=== PATIENT | male | born 1935 | race Caucasian/White ===

== ENCOUNTER 2018-10-13 10:36 | Inpatient (IN) | payer BC, OTHER ==
--- NOTE | 2018-10-13 11:18 | PDOC ---
History of Present Illness - General Chief Complaint: Wound Stated Complaint: WOUND (PCP SENT) History Source: Patient Exam Limitations: No Limitations - History of Present Illness Initial Comments: 10/13/18 11:18 83-year-old male, with a past medical history of diabetes, cardiac bypass surgery (on Xarelto) and b/l venous insufficiency sent from wound care clinic by Dr. Constantine Pitts for cellulitis of the right leg on Keflex for the past 7 days with no improvement. The patient is complaining of pain over the right anterior calf and dorsal left foot but denies fever, chills or weakness. Able to ambulate but with difficulty at baseline. 10/13/18 11:42 Past History - Past Medical History Allergies/Adverse Reactions: Allergies Allergy/AdvReac Type Severity Reaction Status Date / Time No Known Allergies Allergy Verified 10/13/18 10:57 Home Medications: Ambulatory Orders Amiodarone HCl 1 tab PO DAILY 07/10/18 Calcium Carbonate/Vitamin D3 [Calcium 600 + Vit D Tablet] 1 tab PO BID 07/10/18 Glipizide 10 mg PO DAILY 07/10/18 Levothyroxine Sodium [Levoxyl] 1 tab PO DAILY 07/10/18 Magnesium Oxide [Magnesium] 1 tab PO DAILY 07/10/18 Multivitamin [Multiple Vitamins] 1 tab PO DAILY 07/10/18 Rivaroxaban [Xarelto] 20 mg PO DAILY 07/10/18 Atorvastatin Ca [Lipitor] 10 mg PO HS 10/13/18 Furosemide [Lasix -] 20 mg PO DAILY 10/13/18 Ipratropium [place] [Atrovent Hfa] 0 gm IH DAILY 10/13/18 Lisinopril [Zestril] 2.5 mg PO DAILY 10/13/18 Mometasone Furoate [Asmanex 110Mcg -] 2 inh IH DAILY 10/13/18 Montelukast Sodium [Singulair] 10 mg PO HS 10/13/18 Cardiac Disorders: Yes (tacycardia) COPD: No Diabetes: Yes HTN: Yes Hypercholesterolemia: Yes - Surgical History Orthopedic Surgery: Yes (spinal due to traumatic fall) - Suicide/Smoking/Psychosocial Hx Smoking History: Former smoker Have you smoked in the past 12 months: No If you are a former smoker, when did you quit?: 30 yrs ago Information on smoking cessation initiated: No Review of Systems - Review of Systems Able to Perform ROS?: Yes Is the patient limited Amharic proficient: No Constitutional: No: Symptoms Reported HEENTM: No: Symptoms Reported Respiratory: No: Symptoms reported Cardiac (ROS): No: Symptoms Reported ABD/GI: No: Symptoms Reported : No: Symptoms Reported Musculoskeletal: No: Symptoms Reported Integumentary: Yes: Symptoms Reported, See HPI Neurological: No: Symptoms reported All Other Systems: Reviewed and Negative *Physical Exam - Vital Signs Last Vital Signs Temp Pulse Resp BP Pulse Ox 97.9 F 61 19 118/60 98 10/13/18 10:57 10/13/18 10:57 10/13/18 10:57 10/13/18 10:57 10/13/18 10:57 - Physical Exam General Appearance: Yes: Nourished, Appropriately Dressed. No: Apparent Distress HEENT: positive: EOMI, KERRY, Normal ENT Inspection Respiratory/Chest: positive: Lungs Clear, Normal Breath Sounds. negative: Chest Tender, Respiratory Distress Cardiovascular: positive: Regular Rhythm, Regular Rate, S1, S2 Gastrointestinal/Abdominal: positive: Normal Bowel Sounds, Flat, Soft. negative : Tender Musculoskeletal: positive: Normal Inspection. negative: CVA Tenderness Extremity: positive: Normal Capillary Refill, Normal Inspection, Normal Range of Motion Integumentary: positive: Normal Color, Dry, Warm, Other (RLE red warm with 2 lesions on the anterior calf. LLE esion on left dorsum of the foot. ) Neurologic: positive: Fully Oriented, Alert, Normal Mood/Affect, Normal Response , Motor Strength 5/5. 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 Will call Dr. Howard and admit. 10/13/18 12:17 10/13/18 13:[address] Howard *DC/Admit/Observation/Transfer Diagnosis at time of Disposition: Cellulitis of right leg - Discharge Dispostion Condition at time of disposition: Stable Decision to Admit order: Yes - Referrals Referrals: Deepti Acuña MD [Primary Care Provider] - - Patient Instructions - Post Discharge Activity
[2018-10-13] MEDS ORDERED: VANCOMYCIN 1 GRAM (PRE-DOCKED) 1,000 MG/250 ML BAG IVPB ONE ×2 (11:51→12:37)
[2018-10-13] MEDS ORDERED: PIPERACILLIN/TAZOB 4.5 GM 4.5 GM in DEXTROSE 5%-WATER - 100 ML IVPB ONE (12:03)
[2018-10-13] MEDS ORDERED: PIPERACILLIN/TAZOB 4.5 GM 4.5 GM/100 ML BAG IVPB ONE ×2 (12:37→12:59)
[2018-10-13 13:04] LABS: BASO % 0.4 % (0-2.0); HEMATOCRIT 41.5 % (35.4-49); HEMOGLOBIN 13.3 GM/dL (11.7-16.9); LYMPH % 10.7 % (8-40); MCH 29.7 pg (25.7-33.7); MEAN CELL VOLUME 92.9 fl (80-96); MEAN PLT VOLUME 8.9 fl (7.5-11.1); NEUT % 73.9 % (42.8-82.8); PLATELET COUNT 172 K/MM3 (134-434); RBC 4.46 M/mm3 (4.00-5.60); RDW 14.4 % (11.9-15.9); WHITE BLOOD COUNT 5.6 K/mm3 (4.0-10.0)
--- NOTE | 2018-10-13 13:21 | PDOC ---
Attending Attestation - Medical Decision Making 10/13/18 13:[address] Acuña at 1:17 for admission, case discussed with the LADLE P[employer]ER. <Chloe Ricardo - Last Filed: 10/13/18 13:25> - Resident Resident Name: JessePeter - ED Attending Attestation I have performed the following: I have examined & evaluated the patient, The case was reviewed & discussed with the resident, I agree w/resident's findings & plan, Exceptions are as noted - HPI HPI: 10/13/18 13:18 The patient is an 83-year-old male with past medical history significant for DM and Cardiac Bypass Surgery (on Xarelto), chronic bilateral lower extremity wound (follows up with Dr. Pitts) was sent to the emergency department from [facility] by Dr. Jelena Pitts with bilateral lower extremity wound requiring IV abx treatment. The patient was placed on a 7 day Keflex course since 10/06/2018, without improvement. The patient presents with redness and pain to the right lower extremity and the dorsum of the left foot. The patient at baseline can ambulate with difficulty. Denies fever, chills, shortness of breath, diaphoresis, numbness, tingling, loss of sensation. Allergies: NKA Social history: Former smoker, No past or present use alcohol or recreational drugs. Surgical history: LLE ablation. Spinal surgery s/p fall. PCP: Dr. Bradley Acuña. Vascular Surgeon: Dr. Jelena Pitts. - Physicial Exam PE: 10/13/18 13:19 agree with resident exam - Medical Decision Making 10/13/18 13:00 83yo M presents to the ED for admission for cellulitis that failed outpt antibiotics. Plan for labs, IV abx, admission 10/13/18 13:[address] Acuña's LADLE POURER by Dr. Molina. Pt accepted for admission Case discussed in detail with admitting physician including history, physical exam and ancillary studies. Admitting physician has assumed care for the patient, will follow all pending diagnostics and will complete the evaluation and treatment. <Bairon Meza - Last Filed: 10/13/18 14:56>
[2018-10-13 13:37] LABS: ALBUMIN 3.3 g/dl (3.4-5.0); ALK PHOS 129 U/L (45-117); ANION GAP 6 MMOL/L (8-16); BILIRUBIN,TOTAL 0.8 mg/dL (0.2-1); BLOOD UREA NITROGEN 31 mg/dL (7-18); CALCIUM 8.7 mg/dL (8.5-10.1); CHLORIDE 104 mmol/L (98-107); CO2 28 mmol/L (21-32); CREATININE 1.1 mg/dL (0.55-1.3); GLUCOSE,RANDOM 97 mg/dL (74-106); POTASSIUM 4.7 mmol/L (3.5-5.1); SGOT/AST 41 U/L (15-37); SGPT/ALT 35 U/L (13-61); SODIUM 138 mmol/L (136-145); TOT PROT 6.7 g/dl (6.4-8.2)
[2018-10-13] MEDS ORDERED: LISINOPRIL 5 MG TABLET (FP) PO ONE (14:41)
[2018-10-13] MEDS ORDERED: IPRATROPIUM BR 0.02% 0.5 MG/2.5 ML VIAL.NEB. NEB PRN (14:45)
--- NOTE | 2018-10-13 16:08 | PN ---
Progress Note (short form) - Note Progress Note: Vascular surgery Pt seen in [facility] today. Pt has cellulitis of LLE for over a week. Pt seen last week, and keflex was given. Today pt was re-evalauted and not better. Pt has had ablation of GSV bilaterally over the last couple of weeks. Pt sent to ER for IV antibiotics. Pt has palpable pulses. Please place silvadene and LALITO bandages for compression. ID eval for antibiotics Constantine rae DO
[2018-10-13] MEDS: SILVER SULFADIAZINE 1% TOP CREAM 50 GM JAR TP SCH (18:00)
[2018-10-13] MEDS ORDERED: PT OWN MED DRAWER 7, Y5N ONE ×2 (18:07→19:04)
[2018-10-13] MEDS: RIVAROXABAN 20 MG TABLET PO SCH (18:09)
--- NOTE | 2018-10-13 18:24 | HP ---
Admitting History and Physical - Admission History of Present Illness: The patient is an 83-year-old male with past medical history significant for DM and Cardiac Bypass Surgery (on Xarelto), chronic bilateral lower extremity wound (follows up with Dr. Pitts) was sent to the emergency department from [facility] by Dr. Jelena Pitts with bilateral lower extremity wound requiring IV abx treatment. The patient was placed on a 7 day Keflex course since 10/06/2018, without improvement. The patient presents with redness and pain to the right lower extremity and the dorsum of the left foot. The patient at baseline can ambulate with difficulty. Denies fever, chills, shortness of breath, diaphoresis, numbness, tingling, loss of sensation. History Source: Patient, Medical Record Limitations to Obtaining History: Poor Historian - Past Medical History Cardiovascular: Yes: CAD - Past Surgical History Past Surgical History: Yes: CABG - Smoking History Smoking history: Former smoker Have you smoked in the past 12 months: No If you are a former smoker, when did you quit?: 30 yrs ago - Social History ADL: Family Assistance History of Recent Travel: No Home Medications - Allergies Allergies/Adverse Reactions: Allergies Allergy/AdvReac Type Severity Reaction Status Date / Time No Known Allergies Allergy Verified 10/13/18 10:57 - Home Medications Home Medications: Ambulatory Orders Amiodarone HCl 1 tab PO DAILY 07/10/18 Calcium Carbonate/Vitamin D3 [Calcium 600 + Vit D Tablet] 1 tab PO BID 07/10/18 Glipizide 10 mg PO DAILY 07/10/18 Levothyroxine Sodium [Levoxyl] 1 tab PO DAILY 07/10/18 Magnesium Oxide [Magnesium] 1 tab PO DAILY 07/10/18 Multivitamin [Multiple Vitamins] 1 tab PO DAILY 07/10/18 Rivaroxaban [Xarelto] 20 mg PO DAILY 07/10/18 Atorvastatin Ca [Lipitor] 10 mg PO HS 10/13/18 Furosemide [Lasix -] 20 mg PO DAILY 10/13/18 Ipratropium [place] [Atrovent Hfa] 0 gm IH DAILY 10/13/18 Lisinopril [Zestril] 2.5 mg PO DAILY 10/13/18 Mometasone Furoate [Asmanex 110Mcg -] 2 inh IH DAILY 10/13/18 Montelukast Sodium [Singulair] 10 mg PO HS 10/13/18 Review of Systems - Review of Systems Constitutional: reports: Chills. denies: Fever, Malaise, Night Sweats Eyes: reports: No Symptoms HENT: reports: No Symptoms Neck: reports: No Symptoms Cardiovascular: reports: No Symptoms Respiratory: reports: No Symptoms Gastrointestinal: reports: No Symptoms Genitourinary: reports: No Symptoms Breasts: reports: No Symptoms Reported Musculoskeletal: reports: No Symptoms Integumentary: reports: Erythema, Lesions (lower extremities bilat) Neurological: reports: Pre-Existing Deficit Hematology/Lymphatic: reports: No Symptoms Psychiatric: reports: No Symptoms Physical Examination Vital Signs: Vital Signs Temperature 97.6 F 10/13/18 16:03 Pulse Rate 97 H 10/13/18 16:03 Respiratory Rate 20 10/13/18 16:03 Blood Pressure 111/60 10/13/18 16:03 O2 Sat by Pulse Oximetry (%) 99 10/13/18 16:32 Labs: CBC, BMP 10/13/18 12:55 10/13/18 12:55 Problem List - Problems (1) Cellulitis of right lower extremity Code(s): L03.115 - CELLULITIS OF RIGHT LOWER LIMB (2) 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 Code(s): I87.333 - CHRONIC VENOUS HTN W ULCER AND INFLAM OF BILATERAL LOW EXTRM ; L97.919 - NON-PRS CHRONIC ULC UNSP PRT OF R LOW LEG W UNSP SEVERITY; L97.929 - NON-PRS CHRONIC ULC UNSP PRT OF L LOW LEG W UNSP SEVERITY (3) CAD (coronary artery disease) of artery bypass graft Code(s): I25.810 - ATHEROSCLEROSIS OF CABG W/O ANGINA PECTORIS (4) Venous (peripheral) insufficiency Code(s): I87.2 - VENOUS INSUFFICIENCY (CHRONIC) (PERIPHERAL) (5) Type 2 diabetes mellitus with other skin ulcer Code(s): E11.622 - TYPE 2 DIABETES MELLITUS WITH OTHER SKIN ULCER; L98.499 - NON -PRESSURE CHRONIC ULCER OF SKIN OF SITES W UNSP SEVERITY Assessment/Plan # cellulitis bilat LE local treatment per Vascular / compression dressing and elevate Abx per ID will cover for MRSA being followed at wound center Dr Pitts # PVD bilt LE s/p ablation of GSV bilaterally over the last couple of weeks. # CKD trend labs #DM A1c sliding scale / ada diet # hypothyroid continue synthroid #CAD s/p Cabg #Cardiac arrhythmia continue Amidarone levels followed as out patient cardiology follow up as out patient has remained stable
[2018-10-13 18:43] LABS: URINE APPEARANCE CLEAR; URINE BILIRUBIN NEGATIVE (<2.0 mg/dL); URINE COLOR COLORLESS; URINE GLUCOSE (UA) 1+ (NEGATIVE); URINE KETONE NEGATIVE (NEGATIVE); URINE LEUK ESTERASE NEGATIVE (NEGATIVE); URINE NITRITE NEGATIVE (NEGATIVE); URINE PROTEIN NEGATIVE (NEGATIVE); URINE UROBILINOGEN NEGATIVE mg/dL (0.2-1.0)
[2018-10-13] MEDS ORDERED: oxyCODONE HCL 5 MG TABLET PO PRN (18:56)
[2018-10-13] MEDS: ACETAMINOPHEN 325 MG TABLET (FP) PO SCH (19:10)
[2018-10-13] MEDS: LISINOPRIL 5 MG TABLET (FP) PO SCH (19:10)
[2018-10-13] MEDS: ALBUTEROL SO4 2.5/IPRATROPIUM 0.5 INH SOL 3 ML VIAL.NEB. NEB SCH (20:31)
[2018-10-13] MEDS: ATORVASTATIN CA 10 MG TABLET (FP) PO SCH (21:43)
[2018-10-13] MEDS: DOCUSATE SODIUM 100 MG CAPSULE (FP) PO SCH (21:43)
[2018-10-13] MEDS: MONTELUKAST NA 10 MG TABLET PO SCH (21:43)
[2018-10-14] MEDS ORDERED: glipiZIDE 5 MG TABLET (FP) ONE (05:39)
[2018-10-14] MEDS: INSULIN SLIDING SCALE (NOVOLOG) 1 VIAL SQ SCH ×2 (06:13→16:36)
[2018-10-14] MEDS: LEVOTHYROXINE NA 50 MCG TABLET (FP) PO SCH (06:14)
[2018-10-14] MEDS: glipiZIDE 10 MG TABLET (FP) PO SCH (06:14)
[2018-10-14 07:40] LABS: BASO % 0.4 % (0-2.0); EOS % 1.5 % (0-4.5); HEMOGLOBIN 13.2 GM/dL (11.7-16.9); LYMPH % 10.5 % (8-40); MCH 29.9 pg (25.7-33.7); MCHC 32.2 g/dl (32.0-35.9); MEAN CELL VOLUME 92.7 fl (80-96); MEAN PLT VOLUME 9.2 fl (7.5-11.1); MONO % 12.8 % (3.8-10.2); NEUT % 74.8 % (42.8-82.8); PLATELET COUNT 179 K/MM3 (134-434); RBC 4.42 M/mm3 (4.00-5.60); RDW 14.5 % (11.9-15.9)
[2018-10-14] MEDS: ALBUTEROL SO4 2.5/IPRATROPIUM 0.5 INH SOL 3 ML VIAL.NEB. NEB SCH ×4 (07:49→20:57)
[2018-10-14 07:56] LABS: ALK PHOS 124 U/L (45-117); ANION GAP 8 MMOL/L (8-16); BILIRUBIN,TOTAL 0.9 mg/dL (0.2-1); BLOOD UREA NITROGEN 26 mg/dL (7-18); CALCIUM 8.5 mg/dL (8.5-10.1); CHLORIDE 105 mmol/L (98-107); CO2 25 mmol/L (21-32); CREATININE 1.4 mg/dL (0.55-1.3); GLUCOSE,RANDOM 114 mg/dL (74-106); POTASSIUM 5.2 mmol/L (3.5-5.1); SGOT/AST 49 U/L (15-37); SGPT/ALT 34 U/L (13-61); SODIUM 138 mmol/L (136-145); TOT PROT 6.5 g/dl (6.4-8.2)
[2018-10-14] MEDS ORDERED: PT OWN MED DRAWER 7, Y5N ONE ×4 (09:18→21:06)
[2018-10-14] MEDS: FUROSEMIDE 20 MG TABLET (FP) PO SCH (09:36)
[2018-10-14] MEDS: ACETAMINOPHEN 325 MG TABLET (FP) PO SCH ×4 (09:36→21:31)
[2018-10-14] MEDS: LISINOPRIL 5 MG TABLET (FP) PO SCH (09:38)
[2018-10-14] MEDS: AMIODARONE HCL 200 MG TABLET (FP) PO SCH (09:39)
[2018-10-14] MEDS: POLYETHYLENE GLYCOL 3350 119 GM BTL PO SCH (09:39)
--- NOTE | 2018-10-14 11:42 | CON.ID ---
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 uses cane/walker as outpt - History Source History Provided By: Patient, Medical Record Limitations to Obtaining History: No Limitations - Past Medical History Cardio/Vascular: Yes: CAD Endocrine: Yes: Diabetes Mellitus (for fifteen years) - Past Surgical History Past Surgical History: Yes: CABG (30 years ago) Additional Surgical History: spinal surgery 2001 after fall - Alcohol/Substance Use Hx Alcohol Use: No History of Substance Use: reports: None - Smoking History Smoking history: Former smoker Have you smoked in the past 12 months: No If you are a former smoker, when did you quit?: 30 yrs ago - Social History Usual Living Arrangement: Alone ADL: Support Services Occupation: retired construction secretary Place of : [facility] History of Recent Travel: No Home Medications - Allergies Allergies/Adverse Reactions: Allergies Allergy/AdvReac Type Severity Reaction Status Date / Time No Known Allergies Allergy Verified 10/13/18 10:57 - Home Medications Home Medications: Ambulatory Orders Amiodarone HCl 1 tab PO DAILY 07/10/18 Calcium Carbonate/Vitamin D3 [Calcium 600 + Vit D Tablet] 1 tab PO BID 07/10/18 Glipizide 10 mg PO DAILY 07/10/18 Levothyroxine Sodium [Levoxyl] 1 tab PO DAILY 07/10/18 Magnesium Oxide [Magnesium] 1 tab PO DAILY 07/10/18 Multivitamin [Multiple Vitamins] 1 tab PO DAILY 07/10/18 Rivaroxaban [Xarelto] 20 mg PO DAILY 07/10/18 Atorvastatin Ca [Lipitor] 10 mg PO HS 10/13/18 Furosemide [Lasix -] 20 mg PO DAILY 10/13/18 Ipratropium [place] [Atrovent Hfa] 0 gm IH DAILY 10/13/18 Lisinopril [Zestril] 2.5 mg PO DAILY 10/13/18 Mometasone Furoate [Asmanex 110Mcg -] 2 inh IH DAILY 10/13/18 Montelukast Sodium [Singulair] 10 mg PO HS 10/13/18 Family Disease History - Family Disease History Family History: Denies Review of Systems - Review of Systems Constitutional: reports: No Symptoms Eyes: reports: No Symptoms HENT: reports: No Symptoms Neck: reports: No Symptoms Cardiovascular: denies: Chest Pain Respiratory: denies: Cough Gastrointestinal: denies: Abdominal Pain Genitourinary: reports: No Symptoms Physical Exam Vital Signs: Vital Signs Temperature 98 F 10/14/18 10:00 Pulse Rate 91 H 10/14/18 10:00 Respiratory Rate 20 10/14/18 10:00 Blood Pressure 108/68 10/14/18 10:00 O2 Sat by Pulse Oximetry (%) 99 10/14/18 04:00 Constitutional: Yes: Well Nourished, No Distress Eyes: Yes: Conjunctiva Clear HENT: Yes: Atraumatic, Normocephalic Neck: Yes: Supple Cardiovascular: Yes: Regular Rate and Rhythm Respiratory: Yes: Regular, CTA Bilaterally Gastrointestinal: Yes: Normal Bowel Sounds, Soft Extremities: Yes: Other (bilateral lower extrmity erythema rle greater then left , rle is warm, both legs with scabs and excoriations- all dry, no drainage) Edema: Yes Neurological: Yes: Alert, Oriented Labs: CBC, BMP 10/14/18 06:10 10/14/18 06:10 Imaging - Results Chest X-ray: Report Reviewed, Image Reviewed Problem List - Problems (1) Cellulitis of right lower extremity Code(s): L03.115 - CELLULITIS OF RIGHT LOWER LIMB (2) Venous (peripheral) insufficiency Code(s): I87.2 - VENOUS INSUFFICIENCY (CHRONIC) (PERIPHERAL) (3) Renal insufficiency Code(s): N28.9 - DISORDER OF KIDNEY AND URETER, UNSPECIFIED Assessment/Plan cellulitis s/p GSV ablation suspect staph/strep infection add mrsa coverage given lack of improvement will start ceftaroline- does adjust for renal insufficiency repeat bmp in am
[2018-10-14] MEDS: CEFTAROLINE FOSAMIL ACETATE 400 MG in DEXTROSE 5%-WATER - 100 ML IVPB SCH ×2 (14:28→21:33)
[2018-10-14] MEDS: SILVER SULFADIAZINE 1% TOP CREAM 50 GM JAR TP SCH (14:58)
--- NOTE | 2018-10-14 16:52 | PN ---
Progress Note (short form) - Note Progress Note: patient seen and examined in the room legs elevated / dressing in place Vital Signs Period Temp Pulse Resp BP Sys/Almonte Pulse Ox Last 24 Hr 97.1 F-98 F 58-91 20-20 108-134/52-68 97-99 neck supple heart S1/S2 lungs clear bilat abd soft non tender ext bilat LE with terrence bandage left > right CBC, BMP 10/14/18 06:10 10/14/18 06:10 Microbiology 10/13/18 13:15 Blood - Peripheral Venous Blood Culture - Preliminary NO GROWTH OBTAINED AFTER 24 HOURS, INCUBATION TO CONTINUE FOR 4 DAYS. 10/13/18 12:55 Blood - Peripheral Venous Blood Culture - Preliminary NO GROWTH OBTAINED AFTER 24 HOURS, INCUBATION TO CONTINUE FOR 4 DAYS. Active Medications Acetaminophen (Tylenol -) 650 mg PO QID [facility] Last Admin: 10/14/18 14:36 Dose: 650 mg Albuterol/Ipratropium (Duoneb -) 1 amp NEB RQID [facility] Last Admin: 10/14/18 16:53 Dose: 1 amp Amiodarone HCl (Cordarone -) 200 mg PO DAILY [facility] Last Admin: 10/14/18 09:39 Dose: 200 mg Atorvastatin Calcium (Lipitor -) 10 mg PO HS [facility] Last Admin: 10/13/18 21:43 Dose: 10 mg Docusate Sodium (Colace -) 200 mg PO HS [facility] Last Admin: 10/13/18 21:43 Dose: 200 mg Furosemide (Lasix -) 20 mg PO DAILY [facility] Last Admin: 10/14/18 09:36 Dose: 20 mg Glipizide (Glucotrol -) 10 mg PO DAILY@0700 [facility] Last Admin: 10/14/18 06:14 Dose: 10 mg Ceftaroline Fosamil 400 mg/ (Dextrose) 100 mls @ 200 mls/hr IVPB BID [facility]; Protocol Last Admin: 10/14/18 14:28 Dose: 200 mls/hr Insulin Aspart (Novolog Vial Sliding Scale -) 1 vial SQ BIDAC [facility]; Protocol Last Admin: 10/14/18 16:36 Dose: Not Given Ipratropium [place] (Atrovent 0.02% Nebulizer -) 1 amp NEB Q6H PRN PRN Reason: DYSPEPSIA Stop: 10/20/18 14:45 Levothyroxine Sodium (Synthroid -) 50 mcg PO DAILY@0700 [facility] Last Admin: 10/14/18 06:14 Dose: 50 mcg Lisinopril (Prinivil) 2.5 mg PO DAILY [facility] Last Admin: 10/14/18 09:38 Dose: 2.5 mg Mometasone Furoate (Asmanex 220mcg -) 2 puff IH [facility] Montelukast Sodium (Singulair -) 10 mg PO HS [facility] Last Admin: 10/13/18 21:43 Dose: 10 mg Oxycodone HCl (Roxicodone -) 5 mg PO Q6H PRN PRN Reason: PAIN LEVEL 6-10 Polyethylene Glycol (Miralax (For Daily Use) -) 17 gm PO DAILY [facility] Last Admin: 10/14/18 09:39 Dose: 17 gm Rivaroxaban (Xarelto -) 20 mg PO DAILY@1800 [facility] Last Admin: 10/13/18 18:09 Dose: 20 mg Silver Sulfadiazine (Silvadene -) 1 applic TP DAILY [facility] Last Admin: 10/14/18 14:58 Dose: 1 applic # cellulitis bilat LE local treatment per Vascular Abx per ID # PVD bilt LE s/p ablation of GSV bilaterally over the last couple of weeks. 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 Code(s): I87.333 - CHRONIC VENOUS HTN W ULCER AND INFLAM OF BILATERAL LOW EXTRM ; L97.919 - NON-PRS CHRONIC ULC UNSP PRT OF R LOW LEG W UNSP SEVERITY; L97.929 - NON-PRS CHRONIC ULC UNSP PRT OF L LOW LEG W UNSP SEVERITY (3) CAD (coronary artery disease) of artery bypass graft Code(s): I25.810 - ATHEROSCLEROSIS OF CABG W/O ANGINA PECTORIS (4) Venous (peripheral) insufficiency Code(s): I87.2 - VENOUS INSUFFICIENCY (CHRONIC) (PERIPHERAL) (5) Type 2 diabetes mellitus with other skin ulcer Code(s): E11.622 - TYPE 2 DIABETES MELLITUS WITH OTHER SKIN ULCER; L98.499 - NON -PRESSURE CHRONIC ULCER OF SKIN OF SITES W UNSP SEVERITY
[2018-10-14] MEDS: RIVAROXABAN 20 MG TABLET PO SCH (17:36)
[2018-10-14] MEDS: MOMETASONE FUROATE 220 MCG/IH INHALER IH SCH (21:30)
[2018-10-14] MEDS: ATORVASTATIN CA 10 MG TABLET (FP) PO SCH (21:31)
[2018-10-14] MEDS: DOCUSATE SODIUM 100 MG CAPSULE (FP) PO SCH (21:31)
[2018-10-14] MEDS: MONTELUKAST NA 10 MG TABLET PO SCH (21:32)
[2018-10-15] MEDS ORDERED: glipiZIDE 5 MG TABLET (FP) ONE (06:11)
[2018-10-15] MEDS: INSULIN SLIDING SCALE (NOVOLOG) 1 VIAL SQ SCH ×2 (06:41→16:31)
[2018-10-15] MEDS: glipiZIDE 10 MG TABLET (FP) PO SCH (06:41)
[2018-10-15] MEDS: LEVOTHYROXINE NA 50 MCG TABLET (FP) PO SCH (06:42)
[2018-10-15] MEDS: ALBUTEROL SO4 2.5/IPRATROPIUM 0.5 INH SOL 3 ML VIAL.NEB. NEB SCH ×4 (07:34→20:30)
[2018-10-15 07:43] LABS: BASO % 0.4 % (0-2.0); EOS % 1.3 % (0-4.5); HEMATOCRIT 39.6 % (35.4-49); HEMOGLOBIN 12.9 GM/dL (11.7-16.9); LYMPH % 9.6 % (8-40); MCHC 32.6 g/dl (32.0-35.9); MEAN CELL VOLUME 92.2 fl (80-96); MEAN PLT VOLUME 8.8 fl (7.5-11.1); MONO % 13.8 % (3.8-10.2); NEUT % 74.9 % (42.8-82.8); PLATELET COUNT 166 K/MM3 (134-434); RDW 14.7 % (11.9-15.9); WHITE BLOOD COUNT 5.5 K/mm3 (4.0-10.0)
[2018-10-15 08:30] LABS: ANION GAP 6 MMOL/L (8-16); BLOOD UREA NITROGEN 28 mg/dL (7-18); CALCIUM 8.5 mg/dL (8.5-10.1); CHLORIDE 104 mmol/L (98-107); CO2 26 mmol/L (21-32); CREATININE 1.3 mg/dL (0.55-1.3); GLUCOSE,RANDOM 100 mg/dL (74-106); POTASSIUM 4.6 mmol/L (3.5-5.1); SODIUM 136 mmol/L (136-145)
[2018-10-15] MEDS ORDERED: PT OWN MED DRAWER 7, Y5N ONE (09:37)
[2018-10-15] MEDS: FUROSEMIDE 20 MG TABLET (FP) PO SCH (09:47)
[2018-10-15] MEDS: AMIODARONE HCL 200 MG TABLET (FP) PO SCH (09:47)
[2018-10-15] MEDS: ACETAMINOPHEN 325 MG TABLET (FP) PO SCH ×4 (09:47→22:04)
[2018-10-15] MEDS: LISINOPRIL 5 MG TABLET (FP) PO SCH (09:47)
[2018-10-15] MEDS: POLYETHYLENE GLYCOL 3350 119 GM BTL PO SCH (09:53)
[2018-10-15] MEDS: CEFTAROLINE FOSAMIL ACETATE 400 MG in DEXTROSE 5%-WATER - 100 ML IVPB SCH ×2 (09:53→22:03)
--- NOTE | 2018-10-15 14:18 | PN ---
Progress Note (short form) - Note Progress Note: patient seen and examined in the room legs elevated / dressing in place Vital Signs Period Temp Pulse Resp BP Sys/Almonte Pulse Ox Last 24 Hr 97.5 F-97.7 F 62-69 18-20 106-136/56-63 10 neck supple heart S1/S2 lungs clear bilat abd soft non tender ext bilat LE with terrence bandage left > right CBC, BMP 10/15/18 06:00 10/15/18 06:00 CBC, BMP 10/14/18 06:10 10/14/18 06:10 Microbiology 10/13/18 13:15 Blood - Peripheral Venous Blood Culture - Preliminary NO GROWTH OBTAINED AFTER 48 HOURS, INCUBATION TO CONTINUE FOR 3 DAYS. 10/13/18 12:55 Blood - Peripheral Venous Blood Culture - Preliminary NO GROWTH OBTAINED AFTER 48 HOURS, INCUBATION TO CONTINUE FOR 3 DAYS. Active Medications Acetaminophen (Tylenol -) 650 mg PO QID [facility] Last Admin: 10/15/18 13:54 Dose: 650 mg Albuterol/Ipratropium (Duoneb -) 1 amp NEB RQID [facility] Last Admin: 10/15/18 12:24 Dose: 1 amp Amiodarone HCl (Cordarone -) 200 mg PO DAILY [facility] Last Admin: 10/15/18 09:47 Dose: 200 mg Atorvastatin Calcium (Lipitor -) 10 mg PO HS [facility] Last Admin: 10/14/18 21:31 Dose: 10 mg Docusate Sodium (Colace -) 200 mg PO HS [facility] Last Admin: 10/14/18 21:31 Dose: 200 mg Furosemide (Lasix -) 20 mg PO DAILY [facility] Last Admin: 10/15/18 09:47 Dose: 20 mg Glipizide (Glucotrol -) 10 mg PO DAILY@0700 [facility] Last Admin: 10/15/18 06:41 Dose: 10 mg Ceftaroline Fosamil 400 mg/ (Dextrose) 100 mls @ 200 mls/hr IVPB BID [facility]; Protocol Last Admin: 10/15/18 09:53 Dose: 200 mls/hr Insulin Aspart (Novolog Vial Sliding Scale -) 1 vial SQ BIDAC [facility]; Protocol Last Admin: 10/15/18 06:41 Dose: Not Given Ipratropium [place] (Atrovent 0.02% Nebulizer -) 1 amp NEB Q6H PRN PRN Reason: DYSPEPSIA Stop: 10/20/18 14:45 Levothyroxine Sodium (Synthroid -) 50 mcg PO DAILY@0700 [facility] Last Admin: 10/15/18 06:42 Dose: 50 mcg Lisinopril (Prinivil) 2.5 mg PO DAILY [facility] Last Admin: 10/15/18 09:47 Dose: 2.5 mg Mometasone Furoate (Asmanex 220mcg -) 2 puff IH [facility] Last Admin: 10/14/18 21:30 Dose: 2 puff Montelukast Sodium (Singulair -) 10 mg PO HS [facility] Last Admin: 10/14/18 21:32 Dose: 10 mg Oxycodone HCl (Roxicodone -) 5 mg PO Q6H PRN PRN Reason: PAIN LEVEL 6-10 Polyethylene Glycol (Miralax (For Daily Use) -) 17 gm PO DAILY [facility] Last Admin: 10/15/18 09:53 Dose: 17 gm Rivaroxaban (Xarelto -) 20 mg PO DAILY@1800 [facility] Last Admin: 10/14/18 17:36 Dose: 20 mg Silver Sulfadiazine (Silvadene -) 1 applic TP DAILY [facility] Last Admin: 10/14/18 14:58 Dose: 1 woody # cellulitis bilat LE local treatment per Vascular Abx per ID # PVD bilt LE s/p ablation of GSV bilaterally over the last couple of weeks. 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 Code(s): I87.333 - CHRONIC VENOUS HTN W ULCER AND INFLAM OF BILATERAL LOW EXTRM ; L97.919 - NON-PRS CHRONIC ULC UNSP PRT OF R LOW LEG W UNSP SEVERITY; L97.929 - NON-PRS CHRONIC ULC UNSP PRT OF L LOW LEG W UNSP SEVERITY (3) CAD (coronary artery disease) of artery bypass graft Code(s): I25.810 - ATHEROSCLEROSIS OF CABG W/O ANGINA PECTORIS (4) Venous (peripheral) insufficiency Code(s): I87.2 - VENOUS INSUFFICIENCY (CHRONIC) (PERIPHERAL) (5) Type 2 diabetes mellitus with other skin ulcer Code(s): E11.622 - TYPE 2 DIABETES MELLITUS WITH OTHER SKIN ULCER; L98.499 - NON -PRESSURE CHRONIC ULCER OF SKIN OF SITES W UNSP SEVERITY (6) Combined hyperlipidemia associated with type 2 diabetes mellitus Code(s): E11.69 - TYPE 2 DIABETES MELLITUS WITH OTHER SPECIFIED COMPLICATION; E78.2 - MIXED HYPERLIPIDEMIA (7) Unsteady gait Code(s): R26.81 - UNSTEADINESS ON FEET (8) COPD not affecting current episode of care Code(s): J44.9 - CHRONIC OBSTRUCTIVE PULMONARY DISEASE, UNSPECIFIED
[2018-10-15] MEDS: SILVER SULFADIAZINE 1% TOP CREAM 50 GM JAR TP SCH (15:36)
[2018-10-15] MEDS: RIVAROXABAN 20 MG TABLET PO SCH (17:45)
[2018-10-15] MEDS: ATORVASTATIN CA 10 MG TABLET (FP) PO SCH (22:04)
[2018-10-15] MEDS: DOCUSATE SODIUM 100 MG CAPSULE (FP) PO SCH (22:04)
[2018-10-15] MEDS: MOMETASONE FUROATE 220 MCG/IH INHALER IH SCH (22:04)
[2018-10-15] MEDS: MONTELUKAST NA 10 MG TABLET PO SCH (22:14)
[2018-10-16] MEDS ORDERED: glipiZIDE 5 MG TABLET (FP) ONE (06:00)
[2018-10-16] MEDS: LEVOTHYROXINE NA 50 MCG TABLET (FP) PO SCH (06:23)
[2018-10-16] MEDS: glipiZIDE 10 MG TABLET (FP) PO SCH (06:23)
[2018-10-16] MEDS: INSULIN SLIDING SCALE (NOVOLOG) 1 VIAL SQ SCH ×2 (06:23→17:26)
[2018-10-16] MEDS: ALBUTEROL SO4 2.5/IPRATROPIUM 0.5 INH SOL 3 ML VIAL.NEB. NEB SCH ×4 (07:25→19:41)
[2018-10-16] MEDS ORDERED: PT OWN MED DRAWER 7, Y5N ONE (11:11)
[2018-10-16] MEDS: CEFTAROLINE FOSAMIL ACETATE 400 MG in DEXTROSE 5%-WATER - 100 ML IVPB SCH (11:12)
[2018-10-16] MEDS: FUROSEMIDE 20 MG TABLET (FP) PO SCH (11:12)
[2018-10-16] MEDS: ACETAMINOPHEN 325 MG TABLET (FP) PO SCH ×4 (11:13→22:45)
[2018-10-16] MEDS: POLYETHYLENE GLYCOL 3350 119 GM BTL PO SCH (11:16)
[2018-10-16] MEDS: SILVER SULFADIAZINE 1% TOP CREAM 50 GM JAR TP SCH (12:03)
--- NOTE | 2018-10-16 12:50 | PN ---
Progress Note (short form) - Note Progress Note: no compliaints walked to bathroom today Vital Signs Period Temp Pulse Resp BP Sys/Almonte Pulse Ox Last 24 Hr 97.3 F-97.5 F 65-69 17-20 136-144/60-68 100 cor-rrr lungs clear legs still with scaling and peeling skin, decreasing erythema CBC, BMP 10/15/18 06:00 10/15/18 06:00 Microbiology 10/13/18 13:15 Blood - Peripheral Venous Blood Culture - Preliminary NO GROWTH OBTAINED AFTER 48 HOURS, INCUBATION TO CONTINUE FOR 3 DAYS. 10/13/18 12:55 Blood - Peripheral Venous Blood Culture - Preliminary NO GROWTH OBTAINED AFTER 48 HOURS, INCUBATION TO CONTINUE FOR 3 DAYS. a/p cellulitis s/p GSV ablation venous insufficiency improved continue ceftaroline day #3 Problem List - Problems (1) Cellulitis of right lower extremity Code(s): L03.115 - CELLULITIS OF RIGHT LOWER LIMB (2) Venous (peripheral) insufficiency Code(s): I87.2 - VENOUS INSUFFICIENCY (CHRONIC) (PERIPHERAL) (3) Renal insufficiency Code(s): N28.9 - DISORDER OF KIDNEY AND URETER, UNSPECIFIED
[2018-10-16] MEDS: AMIODARONE HCL 200 MG TABLET (FP) PO SCH (15:02)
[2018-10-16] MEDS: LISINOPRIL 5 MG TABLET (FP) PO SCH (15:02)
[2018-10-16] MEDS: RIVAROXABAN 20 MG TABLET PO SCH (18:11)
[2018-10-16] MEDS ORDERED: INSULIN (NOVOLOG) ASPART 100 UNITS/ML 10ML VIAL ONE (20:58)
[2018-10-16] MEDS: MOMETASONE FUROATE 220 MCG/IH INHALER IH SCH (22:44)
[2018-10-16] MEDS: CEFTAROLINE FOSAMIL ACETATE 600 MG in DEXTROSE 5%-WATER - 100 ML IVPB SCH (22:45)
[2018-10-16] MEDS: DOCUSATE SODIUM 100 MG CAPSULE (FP) PO SCH (22:45)
[2018-10-16] MEDS: ATORVASTATIN CA 10 MG TABLET (FP) PO SCH (22:46)
[2018-10-16] MEDS: MONTELUKAST NA 10 MG TABLET PO SCH (22:46)
--- NOTE | 2018-10-16 23:15 | PN ---
Progress Note (short form) - Note Progress Note: patient seen and examined in the room legs elevated / dressing in place Vital Signs Period Temp Pulse Resp BP Sys/Almonte Pulse Ox Last 24 Hr 97.5 F-97.7 F 62-69 18-20 106-136/56-63 10 neck supple heart S1/S2 lungs clear bilat abd soft non tender ext bilat LE with terrence bandage left > right CBC, BMP 10/15/18 06:00 10/15/18 06:00 CBC, BMP 10/15/18 06:00 10/15/18 06:00 Microbiology 10/13/18 13:15 Blood - Peripheral Venous Blood Culture - Preliminary NO GROWTH OBTAINED AFTER 72 HOURS, INCUBATION TO CONTINUE FOR 2 DAYS. 10/13/18 12:55 Blood - Peripheral Venous Blood Culture - Preliminary NO GROWTH OBTAINED AFTER 72 HOURS, INCUBATION TO CONTINUE FOR 2 DAYS. Active Medications Acetaminophen (Tylenol -) 650 mg PO QID [facility] Last Admin: 10/16/18 22:45 Dose: 650 mg Albuterol/Ipratropium (Duoneb -) 1 amp NEB RQID [facility] Last Admin: 10/16/18 19:41 Dose: Not Given Amiodarone HCl (Cordarone -) 200 mg PO DAILY [facility] Last Admin: 10/16/18 15:02 Dose: 200 mg Atorvastatin Calcium (Lipitor -) 10 mg PO HS [facility] Last Admin: 10/16/18 22:46 Dose: 10 mg Docusate Sodium (Colace -) 200 mg PO HS [facility] Last Admin: 10/16/18 22:45 Dose: 200 mg Furosemide (Lasix -) 20 mg PO DAILY [facility] Last Admin: 10/16/18 11:12 Dose: 20 mg Glipizide (Glucotrol -) 10 mg PO DAILY@0700 [facility] Last Admin: 10/16/18 06:23 Dose: 10 mg Ceftaroline Fosamil 600 mg/ (Dextrose) 100 mls @ 200 mls/hr IVPB BID [facility]; Protocol Last Admin: 10/16/18 22:45 Dose: 200 mls/hr Insulin Aspart (Novolog Vial Sliding Scale -) 1 vial SQ BIDAC [facility]; Protocol Last Admin: 10/16/18 17:26 Dose: Not Given Ipratropium [place] (Atrovent 0.02% Nebulizer -) 1 amp NEB Q6H PRN PRN Reason: DYSPEPSIA Stop: 10/20/18 14:45 Levothyroxine Sodium (Synthroid -) 50 mcg PO DAILY@0700 [facility] Last Admin: 10/16/18 06:23 Dose: 50 mcg Lisinopril (Prinivil) 2.5 mg PO DAILY [facility] Last Admin: 10/16/18 15:02 Dose: 2.5 mg Mometasone Furoate (Asmanex 220mcg -) 2 puff IH [facility] Last Admin: 10/16/18 22:44 Dose: 2 puff Montelukast Sodium (Singulair -) 10 mg PO HS [facility] Last Admin: 10/16/18 22:46 Dose: 10 mg Oxycodone HCl (Roxicodone -) 5 mg PO Q6H PRN PRN Reason: PAIN LEVEL 6-10 Polyethylene Glycol (Miralax (For Daily Use) -) 17 gm PO DAILY [facility] Last Admin: 10/16/18 11:16 Dose: 17 gm Rivaroxaban (Xarelto -) 20 mg PO DAILY@1800 [facility] Last Admin: 10/16/18 18:11 Dose: 20 mg Silver Sulfadiazine (Silvadene -) 1 applic TP DAILY [facility] Last Admin: 10/16/18 12:03 Dose: 1 applic # cellulitis bilat LE local treatment per Vascular Abx per ID # PVD bilt LE s/p ablation of GSV bilaterally over the last couple of weeks. 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 Code(s): I87.333 - CHRONIC VENOUS HTN W ULCER AND INFLAM OF BILATERAL LOW EXTRM ; L97.919 - NON-PRS CHRONIC ULC UNSP PRT OF R LOW LEG W UNSP SEVERITY; L97.929 - NON-PRS CHRONIC ULC UNSP PRT OF L LOW LEG W UNSP SEVERITY (3) CAD (coronary artery disease) of artery bypass graft Code(s): I25.810 - ATHEROSCLEROSIS OF CABG W/O ANGINA PECTORIS (4) Venous (peripheral) insufficiency Code(s): I87.2 - VENOUS INSUFFICIENCY (CHRONIC) (PERIPHERAL) (5) Type 2 diabetes mellitus with other skin ulcer Code(s): E11.622 - TYPE 2 DIABETES MELLITUS WITH OTHER SKIN ULCER; L98.499 - NON -PRESSURE CHRONIC ULCER OF SKIN OF SITES W UNSP SEVERITY
--- NOTE | 2018-10-16 23:49 | EKG ---
Test Reason : Blood Pressure : / mmHG Vent. Rate : 061 BPM Atrial Rate : 061 BPM P-R Int : 160 ms QRS Dur : 080 ms QT Int : 444 ms P-R-T Axes : 046 038 027 degrees QTc Int : 446 ms NORMAL SINUS RHYTHM NORMAL ECG NO PREVIOUS ECGS AVAILABLE Confirmed by SANG DESOUZA MD ([id number]) on 10/16/2018 11:48:50 PM Referred By: Confirmed By:SANG DESOUZA MD
[2018-10-17] MEDS ORDERED: PT OWN MED DRAWER 7, Y5N ONE ×8 (06:18→23:22)
[2018-10-17] MEDS: LEVOTHYROXINE NA 50 MCG TABLET (FP) PO SCH (06:33)
[2018-10-17] MEDS: INSULIN SLIDING SCALE (NOVOLOG) 1 VIAL SQ SCH ×2 (06:35→17:56)
[2018-10-17] MEDS: glipiZIDE 10 MG TABLET (FP) PO SCH (07:10)
[2018-10-17] MEDS: ALBUTEROL SO4 2.5/IPRATROPIUM 0.5 INH SOL 3 ML VIAL.NEB. NEB SCH ×4 (08:27→20:39)
[2018-10-17] MEDS: ACETAMINOPHEN 325 MG TABLET (FP) PO SCH ×4 (09:43→21:59)
[2018-10-17] MEDS: AMIODARONE HCL 200 MG TABLET (FP) PO SCH (09:44)
[2018-10-17] MEDS: FUROSEMIDE 20 MG TABLET (FP) PO SCH (09:44)
[2018-10-17] MEDS: CEFTAROLINE FOSAMIL ACETATE 600 MG in DEXTROSE 5%-WATER - 100 ML IVPB SCH ×2 (09:46→21:56)
[2018-10-17] MEDS: LISINOPRIL 5 MG TABLET (FP) PO SCH (09:47)
[2018-10-17] MEDS: POLYETHYLENE GLYCOL 3350 119 GM BTL PO SCH (09:47)
[2018-10-17] MEDS: SILVER SULFADIAZINE 1% TOP CREAM 50 GM JAR TP SCH (17:56)
[2018-10-17] MEDS: RIVAROXABAN 20 MG TABLET PO SCH (18:03)
--- NOTE | 2018-10-17 21:14 | PN ---
Progress Note (short form) - Note Progress Note: patient seen and examined in the room legs elevated / dressing in place to discuss with ID change to PO Vital Signs Period Temp Pulse Resp BP Sys/Almonte Pulse Ox Last 24 Hr 97.5 F-97.7 F 62-69 18-20 106-136/56-63 10 neck supple heart S1/S2 lungs clear bilat abd soft non tender ext bilat LE with terrence bandage left > right CBC, BMP 10/15/18 06:00 10/15/18 06:00 Microbiology 10/13/18 13:15 Blood - Peripheral Venous Blood Culture - Preliminary NO GROWTH OBTAINED AFTER 96 HOURS, INCUBATION TO CONTINUE FOR 1 DAYS. 10/13/18 12:55 Blood - Peripheral Venous Blood Culture - Preliminary NO GROWTH OBTAINED AFTER 96 HOURS, INCUBATION TO CONTINUE FOR 1 DAYS. Active Medications Acetaminophen (Tylenol -) 650 mg PO QID [facility] Last Admin: 10/17/18 17:57 Dose: Not Given Albuterol/Ipratropium (Duoneb -) 1 amp NEB RQID [facility] Last Admin: 10/17/18 20:39 Dose: 1 amp Amiodarone HCl (Cordarone -) 200 mg PO DAILY [facility] Last Admin: 10/17/18 09:44 Dose: 200 mg Atorvastatin Calcium (Lipitor -) 10 mg PO HS [facility] Last Admin: 10/16/18 22:46 Dose: 10 mg Docusate Sodium (Colace -) 200 mg PO HS [facility] Last Admin: 10/16/18 22:45 Dose: 200 mg Furosemide (Lasix -) 20 mg PO DAILY [facility] Last Admin: 10/17/18 09:44 Dose: 20 mg Glipizide (Glucotrol -) 10 mg PO DAILY@0700 [facility] Last Admin: 10/17/18 07:10 Dose: 10 mg Ceftaroline Fosamil 600 mg/ (Dextrose) 100 mls @ 200 mls/hr IVPB BID [facility]; Protocol Last Admin: 10/17/18 09:46 Dose: 200 mls/hr Insulin Aspart (Novolog Vial Sliding Scale -) 1 vial SQ BIDAC [facility]; Protocol Last Admin: 10/17/18 17:56 Dose: Not Given Ipratropium [place] (Atrovent 0.02% Nebulizer -) 1 amp NEB Q6H PRN PRN Reason: DYSPEPSIA Stop: 10/20/18 14:45 Levothyroxine Sodium (Synthroid -) 50 mcg PO DAILY@0700 [facility] Last Admin: 10/17/18 06:33 Dose: 50 mcg Lisinopril (Prinivil) 2.5 mg PO DAILY [facility] Last Admin: 10/17/18 09:47 Dose: 2.5 mg Mometasone Furoate (Asmanex 220mcg -) 2 puff IH [facility] Last Admin: 10/16/18 22:44 Dose: 2 puff Montelukast Sodium (Singulair -) 10 mg PO HS [facility] Last Admin: 10/16/18 22:46 Dose: 10 mg Oxycodone HCl (Roxicodone -) 5 mg PO Q6H PRN PRN Reason: PAIN LEVEL 6-10 Polyethylene Glycol (Miralax (For Daily Use) -) 17 gm PO DAILY [facility] Last Admin: 10/17/18 09:47 Dose: 17 gm Rivaroxaban (Xarelto -) 20 mg PO DAILY@1800 [facility] Last Admin: 10/17/18 18:03 Dose: 20 mg Silver Sulfadiazine (Silvadene -) 1 applic TP DAILY [facility] Last Admin: 10/17/18 17:56 Dose: 1 applic # cellulitis bilat LE local treatment per Vascular Abx per ID # PVD bilt LE s/p ablation of GSV bilaterally over the last couple of weeks. 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 Code(s): I87.333 - CHRONIC VENOUS HTN W ULCER AND INFLAM OF BILATERAL LOW EXTRM ; L97.919 - NON-PRS CHRONIC ULC UNSP PRT OF R LOW LEG W UNSP SEVERITY; L97.929 - NON-PRS CHRONIC ULC UNSP PRT OF L LOW LEG W UNSP SEVERITY (3) CAD (coronary artery disease) of artery bypass graft Code(s): I25.810 - ATHEROSCLEROSIS OF CABG W/O ANGINA PECTORIS (4) Venous (peripheral) insufficiency Code(s): I87.2 - VENOUS INSUFFICIENCY (CHRONIC) (PERIPHERAL) (5) Type 2 diabetes mellitus with other skin ulcer Code(s): E11.622 - TYPE 2 DIABETES MELLITUS WITH OTHER SKIN ULCER; L98.499 - NON -PRESSURE CHRONIC ULCER OF SKIN OF SITES W UNSP SEVERITY
[2018-10-17] MEDS: MOMETASONE FUROATE 220 MCG/IH INHALER IH SCH (21:56)
[2018-10-17] MEDS: DOCUSATE SODIUM 100 MG CAPSULE (FP) PO SCH (21:57)
[2018-10-17] MEDS: ATORVASTATIN CA 10 MG TABLET (FP) PO SCH (21:57)
[2018-10-17] MEDS: MONTELUKAST NA 10 MG TABLET PO SCH (21:57)
[2018-10-18] MEDS ORDERED: glipiZIDE 5 MG TABLET (FP) ONE (05:32)
[2018-10-18] MEDS: INSULIN SLIDING SCALE (NOVOLOG) 1 VIAL SQ SCH ×2 (06:11→17:08)
[2018-10-18] MEDS: LEVOTHYROXINE NA 50 MCG TABLET (FP) PO SCH (06:20)
[2018-10-18] MEDS: glipiZIDE 10 MG TABLET (FP) PO SCH (06:21)
[2018-10-18 06:58] LABS: BASO % 0.4 % (0-2.0); EOS % 1.7 % (0-4.5); HEMATOCRIT 39.9 % (35.4-49); HEMOGLOBIN 13.1 GM/dL (11.7-16.9); LYMPH % 10.3 % (8-40); MCH 30.2 pg (25.7-33.7); MCHC 32.7 g/dl (32.0-35.9); MEAN CELL VOLUME 92.4 fl (80-96); MEAN PLT VOLUME 8.8 fl (7.5-11.1); MONO % 15.3 % (3.8-10.2); NEUT % 72.3 % (42.8-82.8); PLATELET COUNT 152 K/MM3 (134-434); RBC 4.32 M/mm3 (4.00-5.60); RDW 14.3 % (11.9-15.9)
[2018-10-18 07:41] LABS: ANION GAP 7 MMOL/L (8-16); BLOOD UREA NITROGEN 31 mg/dL (7-18); CALCIUM 8.4 mg/dL (8.5-10.1); CHLORIDE 102 mmol/L (98-107); CO2 27 mmol/L (21-32); CREATININE 1.2 mg/dL (0.55-1.3); GLUCOSE,RANDOM 79 mg/dL (74-106); POTASSIUM 4.5 mmol/L (3.5-5.1); SODIUM 136 mmol/L (136-145)
[2018-10-18] MEDS: ALBUTEROL SO4 2.5/IPRATROPIUM 0.5 INH SOL 3 ML VIAL.NEB. NEB SCH ×4 (08:50→21:10)
[2018-10-18] MEDS ORDERED: PT OWN MED DRAWER 7, Y5N ONE ×2 (09:03→21:52)
[2018-10-18] MEDS: FUROSEMIDE 20 MG TABLET (FP) PO SCH (09:10)
[2018-10-18] MEDS: LISINOPRIL 5 MG TABLET (FP) PO SCH (09:11)
[2018-10-18] MEDS: POLYETHYLENE GLYCOL 3350 119 GM BTL PO SCH (09:11)
[2018-10-18] MEDS: ACETAMINOPHEN 325 MG TABLET (FP) PO SCH ×4 (09:14→22:32)
[2018-10-18] MEDS: SILVER SULFADIAZINE 1% TOP CREAM 50 GM JAR TP SCH (09:25)
[2018-10-18] MEDS: AMIODARONE HCL 200 MG TABLET (FP) PO SCH (09:26)
--- NOTE | 2018-10-18 11:16 | PN ---
Progress Note (short form) - Note Progress Note: heel pain resolved no complaints Vital Signs Period Temp Pulse Resp BP Sys/Almonte Pulse Ox Last 24 Hr 97.0 F-97.7 F 58-69 20-20 105-134/56-64 99-100 cor-rrr lungs clear abd- soft,nt ext less erythema, edema resolved scaly skin noted CBC, BMP 10/18/18 06:15 10/18/18 06:15 Microbiology 10/13/18 13:15 Blood - Peripheral Venous Blood Culture - Preliminary NO GROWTH OBTAINED AFTER 96 HOURS, INCUBATION TO CONTINUE FOR 1 DAYS. 10/13/18 12:55 Blood - Peripheral Venous Blood Culture - Preliminary NO GROWTH OBTAINED AFTER 96 HOURS, INCUBATION TO CONTINUE FOR 1 DAYS. Current Medications Acetaminophen (Tylenol -) 650 mg PO QID [facility] Last Admin: 10/18/18 09:14 Dose: 650 mg Albuterol/Ipratropium (Duoneb -) 1 amp NEB RQID [facility] Last Admin: 10/17/18 20:39 Dose: 1 amp Amiodarone HCl (Cordarone -) 200 mg PO DAILY [facility] Last Admin: 10/18/18 09:26 Dose: 200 mg Atorvastatin Calcium (Lipitor -) 10 mg PO HS [facility] Last Admin: 10/17/18 21:57 Dose: 10 mg Docusate Sodium (Colace -) 200 mg PO HS [facility] Last Admin: 10/17/18 21:57 Dose: 200 mg Furosemide (Lasix -) 20 mg PO DAILY [facility] Last Admin: 10/18/18 09:10 Dose: 20 mg Glipizide (Glucotrol -) 10 mg PO DAILY@0700 [facility] Last Admin: 10/18/18 06:21 Dose: 10 mg Ceftaroline Fosamil 600 mg/ (Dextrose) 100 mls @ 200 mls/hr IVPB BID [facility]; Protocol Last Admin: 10/17/18 21:56 Dose: 200 mls/hr Insulin Aspart (Novolog Vial Sliding Scale -) 1 vial SQ BIDAC [facility]; Protocol Last Admin: 10/18/18 06:11 Dose: Not Given Ipratropium [place] (Atrovent 0.02% Nebulizer -) 1 amp NEB Q6H PRN PRN Reason: DYSPEPSIA Stop: 10/20/18 14:45 Levothyroxine Sodium (Synthroid -) 50 mcg PO DAILY@0700 [facility] Last Admin: 10/18/18 06:20 Dose: 50 mcg Lisinopril (Prinivil) 2.5 mg PO DAILY [facility] Last Admin: 10/18/18 09:11 Dose: 2.5 mg Mometasone Furoate (Asmanex 220mcg -) 2 puff IH [facility] Last Admin: 10/17/18 21:56 Dose: 2 puff Montelukast Sodium (Singulair -) 10 mg PO HS [facility] Last Admin: 10/17/18 21:57 Dose: 10 mg Oxycodone HCl (Roxicodone -) 5 mg PO Q6H PRN PRN Reason: PAIN LEVEL 6-10 Polyethylene Glycol (Miralax (For Daily Use) -) 17 gm PO DAILY [facility] Last Admin: 10/18/18 09:11 Dose: 17 gm Rivaroxaban (Xarelto -) 20 mg PO DAILY@1800 [facility] Last Admin: 10/17/18 18:03 Dose: 20 mg Silver Sulfadiazine (Silvadene -) 1 applic TP DAILY [facility] Last Admin: 10/18/18 09:25 Dose: 1 applic a/p cellulitis s/p GSV ablation venous insufficiency improved day #5 ceftaroline will switch to po clindamycin for 5 days add probiotics d/w PMD Problem List - Problems (1) Cellulitis of right lower extremity Code(s): L03.115 - CELLULITIS OF RIGHT LOWER LIMB (2) Venous (peripheral) insufficiency Code(s): I87.2 - VENOUS INSUFFICIENCY (CHRONIC) (PERIPHERAL) (3) Renal insufficiency Code(s): N28.9 - DISORDER OF KIDNEY AND URETER, UNSPECIFIED
[2018-10-18] MEDS: CEFTAROLINE FOSAMIL ACETATE 600 MG in DEXTROSE 5%-WATER - 100 ML IVPB SCH (11:55)
--- NOTE | 2018-10-18 11:55 | DS ---
Physical Examination Vital Signs: Vital Signs Temperature 97.7 F 10/18/18 05:48 Pulse Rate 58 L 10/18/18 05:48 Respiratory Rate 20 10/18/18 05:48 Blood Pressure 114/56 L 10/18/18 05:48 O2 Sat by Pulse Oximetry (%) 100 10/17/18 22:00 Findings/Remarks: The patient is an 83-year-old male with past medical history significant for DM and Cardiac Bypass Surgery (on Xarelto), chronic bilateral lower extremity wound (follows up with Dr. Pitts) was sent to the emergency department from [facility] by Dr. Jelena Pitts with bilateral lower extremity wound requiring IV abx treatment. The patient was placed on a 7 day Keflex course since 10/06/2018, without improvement. The patient presents with redness and pain to the right lower extremity and the dorsum of the left foot. The patient at baseline can ambulate with difficulty. Denies fever, chills, shortness of breath, diaphoresis, numbness, tingling, loss of sensation. # cellulitis bilat LE local treatment per Vascular -- silvadene to open wound and then cover with gauze / and terrence Abx changed to PO clinda 300 TID appreciate ID follow up # PVD bilt LE s/p ablation of GSV bilaterally over the last couple of weeks. # CKD have remained stable #DM A1c sliding scale # hypothyroid continue synthroid #CAD s/p Cabg will need STR for deconditioning -- unstable gait and wound care only has 5 hour of assistance at home --will need more assistance Constitutional: Yes: Well Nourished, No Distress, Calm Eyes: Yes: WNL, Conjunctiva Clear HENT: Yes: WNL, Atraumatic, Normocephalic Neck: Yes: Supple, Trachea Midline Cardiovascular: Yes: Regular Rate and Rhythm Respiratory: Yes: Regular, CTA Bilaterally Gastrointestinal: Yes: Normal Bowel Sounds, Soft ...Rectal Exam: Yes: Deferred Renal/: Yes: WNL Breast(s): Yes: WNL Musculoskeletal: Yes: WNL, Muscle Weakness, Other (unstable gait -- asstance of 1) Extremities: Yes: Erythema, Other (open wound left distal anterior tib borders clean both lower ext with dry scaly skin bur no open areas heel left LE not painful on exam -- skin intact) Edema: No Peripheral Pulses WNL: Yes Integumentary: Yes: Erythema, Other (dry skin) Wound/Incision: Yes: Clean/Dry, Dressing Removed (to examine wound - will need daily wound care silvedene and cover with gauze and terrence for compression) Neurological: Yes: Alert, Oriented, Pre-Existing Deficit Psychiatric: Yes: Alert, Oriented Labs: CBC, BMP 10/18/18 06:15 10/18/18 06:15 Discharge Summary Reason For Visit: CELLULITIS OF RLE Current Active Problems CAD (coronary artery disease) of artery bypass graft (Acute) Cellulitis of right lower extremity (Acute) Renal insufficiency (Acute) hypothyroid Diabetes Mellitus II unsteady gait Condition: Improved - Instructions Referrals: Deepti Acuña MD [Primary Care Provider] - Disposition: RESIDENTIAL FACILITY - Home Medications Comprehensive Discharge Medication List: Ambulatory Orders Amiodarone HCl 1 tab PO DAILY 07/10/18 Calcium Carbonate/Vitamin D3 [Calcium 600 + Vit D Tablet] 1 tab PO BID 07/10/18 Glipizide 10 mg PO DAILY 07/10/18 Levothyroxine Sodium [Levoxyl] 1 tab PO DAILY 07/10/18 Magnesium Oxide [Magnesium] 1 tab PO DAILY 07/10/18 Multivitamin [Multiple Vitamins] 1 tab PO DAILY 07/10/18 Rivaroxaban [Xarelto] 20 mg PO DAILY 07/10/18 Atorvastatin Ca [Lipitor] 10 mg PO HS 10/13/18 Furosemide [Lasix -] 20 mg PO DAILY 10/13/18 Ipratropium [place] [Atrovent Hfa] 0 gm IH DAILY 10/13/18 Lisinopril [Zestril] 2.5 mg PO DAILY 10/13/18 Mometasone Furoate [Asmanex 110Mcg -] 2 inh IH DAILY 10/13/18 Montelukast Sodium [Singulair] 10 mg PO HS 10/13/18
--- NOTE | 2018-10-18 11:55 | PN ---
Progress Note (short form) - Note Progress Note: patient seen and examined in the room dressing removed legs examined / dry skin heel pain improved open wound left distal ant tib smalled - clean discussed with ID at bedside - change to PO Vital Signs Period Temp Pulse Resp BP Sys/Almonte Pulse Ox Last 24 Hr 97.0 F-97.7 F 58-69 20-20 105-134/56-64 99-100 neck supple heart S1/S2 lungs clear bilat abd soft non tender ext elbow / facial patch - dry skin ezcema. lower ext -as above CBC, BMP 10/18/18 06:15 10/18/18 06:15 CBC, BMP 10/15/18 06:00 10/15/18 06:00 Microbiology 10/13/18 13:15 Blood - Peripheral Venous Blood Culture - Preliminary NO GROWTH OBTAINED AFTER 96 HOURS, INCUBATION TO CONTINUE FOR 1 DAYS. 10/13/18 12:55 Blood - Peripheral Venous Blood Culture - Preliminary NO GROWTH OBTAINED AFTER 96 HOURS, INCUBATION TO CONTINUE FOR 1 DAYS. Active Medications Acetaminophen (Tylenol -) 650 mg PO QID [facility] Last Admin: 10/17/18 17:57 Dose: Not Given Albuterol/Ipratropium (Duoneb -) 1 amp NEB RQID [facility] Last Admin: 10/17/18 20:39 Dose: 1 amp Amiodarone HCl (Cordarone -) 200 mg PO DAILY [facility] Last Admin: 10/17/18 09:44 Dose: 200 mg Atorvastatin Calcium (Lipitor -) 10 mg PO HS [facility] Last Admin: 10/16/18 22:46 Dose: 10 mg Docusate Sodium (Colace -) 200 mg PO HS [facility] Last Admin: 10/16/18 22:45 Dose: 200 mg Furosemide (Lasix -) 20 mg PO DAILY [facility] Last Admin: 10/17/18 09:44 Dose: 20 mg Glipizide (Glucotrol -) 10 mg PO DAILY@0700 [facility] Last Admin: 10/17/18 07:10 Dose: 10 mg Ceftaroline Fosamil 600 mg/ (Dextrose) 100 mls @ 200 mls/hr IVPB BID [facility]; Protocol Last Admin: 10/17/18 09:46 Dose: 200 mls/hr Insulin Aspart (Novolog Vial Sliding Scale -) 1 vial SQ BIDAC [facility]; Protocol Last Admin: 10/17/18 17:56 Dose: Not Given Ipratropium [place] (Atrovent 0.02% Nebulizer -) 1 amp NEB Q6H PRN PRN Reason: DYSPEPSIA Stop: 10/20/18 14:45 Levothyroxine Sodium (Synthroid -) 50 mcg PO DAILY@0700 [facility] Last Admin: 10/17/18 06:33 Dose: 50 mcg Lisinopril (Prinivil) 2.5 mg PO DAILY [facility] Last Admin: 10/17/18 09:47 Dose: 2.5 mg Mometasone Furoate (Asmanex 220mcg -) 2 puff IH [facility] Last Admin: 10/16/18 22:44 Dose: 2 puff Montelukast Sodium (Singulair -) 10 mg PO HS [facility] Last Admin: 10/16/18 22:46 Dose: 10 mg Oxycodone HCl (Roxicodone -) 5 mg PO Q6H PRN PRN Reason: PAIN LEVEL 6-10 Polyethylene Glycol (Miralax (For Daily Use) -) 17 gm PO DAILY [facility] Last Admin: 10/17/18 09:47 Dose: 17 gm Rivaroxaban (Xarelto -) 20 mg PO DAILY@1800 [facility] Last Admin: 10/17/18 18:03 Dose: 20 mg Silver Sulfadiazine (Silvadene -) 1 applic TP DAILY [facility] Last Admin: 10/17/18 17:56 Dose: 1 applic # cellulitis bilat LE local treatment per Vascular Abx to change to PO appreciate ID follow up # PVD bilt LE s/p ablation of GSV bilaterally over the last couple of weeks. 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 Code(s): I87.333 - CHRONIC VENOUS HTN W ULCER AND INFLAM OF BILATERAL LOW EXTRM ; L97.919 - NON-PRS CHRONIC ULC UNSP PRT OF R LOW LEG W UNSP SEVERITY; L97.929 - NON-PRS CHRONIC ULC UNSP PRT OF L LOW LEG W UNSP SEVERITY (3) CAD (coronary artery disease) of artery bypass graft Code(s): I25.810 - ATHEROSCLEROSIS OF CABG W/O ANGINA PECTORIS (4) Venous (peripheral) insufficiency Code(s): I87.2 - VENOUS INSUFFICIENCY (CHRONIC) (PERIPHERAL) (5) Need for assistance due to unsteady gait Code(s): R26.89 - OTHER ABNORMALITIES OF GAIT AND MOBILITY (6) Type 2 diabetes mellitus with other skin ulcer Code(s): E11.622 - TYPE 2 DIABETES MELLITUS WITH OTHER SKIN ULCER; L98.499 - NON -PRESSURE CHRONIC ULCER OF SKIN OF SITES W UNSP SEVERITY (7) Hypothyroid Code(s): E03.9 - HYPOTHYROIDISM, UNSPECIFIED (8) Unsteady gait Code(s): R26.81 - UNSTEADINESS ON FEET
[2018-10-18] MEDS: CLINDAMYCIN HCL 150 MG CAPSULE (FP) PO SCH ×2 (13:39→22:31)
[2018-10-18] MEDS: LACTOBACILLUS ACIDOPHILUS 1 TABLET PO SCH (13:40)
[2018-10-18] MEDS: RIVAROXABAN 20 MG TABLET PO SCH (17:54)
[2018-10-18] MEDS: MONTELUKAST NA 10 MG TABLET PO SCH (22:31)
[2018-10-18] MEDS: DOCUSATE SODIUM 100 MG CAPSULE (FP) PO SCH (22:31)
[2018-10-18] MEDS: MOMETASONE FUROATE 220 MCG/IH INHALER IH SCH (22:32)
[2018-10-18] MEDS: ATORVASTATIN CA 10 MG TABLET (FP) PO SCH (22:32)
[2018-10-19] MEDS ORDERED: glipiZIDE 5 MG TABLET (FP) ONE (05:37)
[2018-10-19] MEDS: glipiZIDE 10 MG TABLET (FP) PO SCH (06:17)
[2018-10-19] MEDS: CLINDAMYCIN HCL 150 MG CAPSULE (FP) PO SCH ×3 (06:17→22:07)
[2018-10-19] MEDS: LEVOTHYROXINE NA 50 MCG TABLET (FP) PO SCH (06:17)
[2018-10-19] MEDS: INSULIN SLIDING SCALE (NOVOLOG) 1 VIAL SQ SCH ×2 (06:17→17:00)
[2018-10-19] MEDS: ALBUTEROL SO4 2.5/IPRATROPIUM 0.5 INH SOL 3 ML VIAL.NEB. NEB SCH ×4 (07:50→20:00)
--- NOTE | 2018-10-19 09:35 | PN ---
Progress Note (short form) - Note Progress Note: patient seen and examined in the room legs elevated / dressing in place dischrge arranged for am - patient to go home with assistance 7days a week Vital Signs Period Temp Pulse Resp BP Sys/Almonte Pulse Ox Last 24 Hr 97.7 F-97.9 F 55-65 18-20 112-127/55-64 99 neck supple heart S1/S2 lungs clear bilat abd soft non tender ext erythematous /dry skin bilat LE bilat LE with terrence bandage left > right CBC, BMP 10/18/18 06:15 10/18/18 06:15 CBC, BMP 10/15/18 06:00 10/15/18 06:00 Microbiology 10/13/18 13:15 Blood - Peripheral Venous Blood Culture - Final NO GROWTH AFTER 5 DAYS INCUBATION 10/13/18 12:55 Blood - Peripheral Venous Blood Culture - Final NO GROWTH AFTER 5 DAYS INCUBATION Active Medications Acetaminophen (Tylenol -) 650 mg PO QID [facility] Last Admin: 10/18/18 22:32 Dose: 650 mg Albuterol/Ipratropium (Duoneb -) 1 amp NEB RQID [facility] Last Admin: 10/18/18 21:10 Dose: 1 amp Amiodarone HCl (Cordarone -) 200 mg PO DAILY [facility] Last Admin: 10/18/18 09:26 Dose: 200 mg Atorvastatin Calcium (Lipitor -) 10 mg PO HS [facility] Last Admin: 10/18/18 22:32 Dose: 10 mg Clindamycin HCl (Cleocin -) 300 mg PO TID [facility] Last Admin: 10/19/18 06:17 Dose: 300 mg Docusate Sodium (Colace -) 200 mg PO HS [facility] Last Admin: 10/18/18 22:31 Dose: 200 mg Furosemide (Lasix -) 20 mg PO DAILY [facility] Last Admin: 10/18/18 09:10 Dose: 20 mg Glipizide (Glucotrol -) 10 mg PO DAILY@0700 [facility] Last Admin: 10/19/18 06:17 Dose: 10 mg Insulin Aspart (Novolog Vial Sliding Scale -) 1 vial SQ BIDAC [facility]; Protocol Last Admin: 10/19/18 06:17 Dose: Not Given Ipratropium [place] (Atrovent 0.02% Nebulizer -) 1 amp NEB Q6H PRN PRN Reason: DYSPEPSIA Stop: 10/20/18 14:45 Lactobacillus Acidophilus (Bacid -) 1 tab PO DAILY [facility] Last Admin: 10/18/18 13:40 Dose: 1 tab Levothyroxine Sodium (Synthroid -) 50 mcg PO DAILY@0700 [facility] Last Admin: 10/19/18 06:17 Dose: 50 mcg Lisinopril (Prinivil) 2.5 mg PO DAILY [facility] Last Admin: 10/18/18 09:11 Dose: 2.5 mg Mometasone Furoate (Asmanex 220mcg -) 2 puff IH [facility] Last Admin: 10/18/18 22:32 Dose: 2 puff Montelukast Sodium (Singulair -) 10 mg PO HS [facility] Last Admin: 10/18/18 22:31 Dose: 10 mg Oxycodone HCl (Roxicodone -) 5 mg PO Q6H PRN PRN Reason: PAIN LEVEL 6-10 Polyethylene Glycol (Miralax (For Daily Use) -) 17 gm PO DAILY [facility] Last Admin: 10/18/18 09:11 Dose: 17 gm Rivaroxaban (Xarelto -) 20 mg PO DAILY@1800 [facility] Last Admin: 10/18/18 17:54 Dose: 20 mg Silver Sulfadiazine (Silvadene -) 1 applic TP DAILY [facility] Last Admin: 10/18/18 09:25 Dose: 1 applic # cellulitis bilat LE local treatment per Vascular Abx per ID # PVD bilt LE s/p ablation of GSV bilaterally over the last couple of weeks. 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 Code(s): I87.333 - CHRONIC VENOUS HTN W ULCER AND INFLAM OF BILATERAL LOW EXTRM ; L97.919 - NON-PRS CHRONIC ULC UNSP PRT OF R LOW LEG W UNSP SEVERITY; L97.929 - NON-PRS CHRONIC ULC UNSP PRT OF L LOW LEG W UNSP SEVERITY (3) CAD (coronary artery disease) of artery bypass graft Code(s): I25.810 - ATHEROSCLEROSIS OF CABG W/O ANGINA PECTORIS (4) Venous (peripheral) insufficiency Code(s): I87.2 - VENOUS INSUFFICIENCY (CHRONIC) (PERIPHERAL) (5) Type 2 diabetes mellitus with other skin ulcer Code(s): E11.622 - TYPE 2 DIABETES MELLITUS WITH OTHER SKIN ULCER; L98.499 - NON -PRESSURE CHRONIC ULCER OF SKIN OF SITES W UNSP SEVERITY
[2018-10-19] MEDS: LACTOBACILLUS ACIDOPHILUS 1 TABLET PO SCH (09:38)
[2018-10-19] MEDS: FUROSEMIDE 20 MG TABLET (FP) PO SCH (09:39)
[2018-10-19] MEDS: LISINOPRIL 5 MG TABLET (FP) PO SCH (09:39)
[2018-10-19] MEDS: AMIODARONE HCL 200 MG TABLET (FP) PO SCH (09:40)
[2018-10-19] MEDS: ACETAMINOPHEN 325 MG TABLET (FP) PO SCH ×4 (09:40→22:07)
[2018-10-19] MEDS: POLYETHYLENE GLYCOL 3350 119 GM BTL PO SCH (09:52)
[2018-10-19] MEDS: SILVER SULFADIAZINE 1% TOP CREAM 50 GM JAR TP SCH (09:52)
[2018-10-19] MEDS: RIVAROXABAN 20 MG TABLET PO SCH (18:23)
[2018-10-19] MEDS: DOCUSATE SODIUM 100 MG CAPSULE (FP) PO SCH (22:06)
[2018-10-19] MEDS: MONTELUKAST NA 10 MG TABLET PO SCH (22:07)
[2018-10-19] MEDS: MOMETASONE FUROATE 220 MCG/IH INHALER IH SCH (22:07)
[2018-10-19] MEDS: ATORVASTATIN CA 10 MG TABLET (FP) PO SCH (22:07)
[2018-10-20] MEDS ORDERED: glipiZIDE 5 MG TABLET (FP) ONE (05:23)
[2018-10-20] MEDS: INSULIN SLIDING SCALE (NOVOLOG) 1 VIAL SQ SCH ×2 (06:05→17:20)
[2018-10-20] MEDS: glipiZIDE 10 MG TABLET (FP) PO SCH (06:18)
[2018-10-20] MEDS: LEVOTHYROXINE NA 50 MCG TABLET (FP) PO SCH (06:18)
[2018-10-20] MEDS: CLINDAMYCIN HCL 150 MG CAPSULE (FP) PO SCH ×3 (06:18→21:23)
[2018-10-20] MEDS: ALBUTEROL SO4 2.5/IPRATROPIUM 0.5 INH SOL 3 ML VIAL.NEB. NEB SCH ×4 (08:57→21:00)
[2018-10-20] MEDS: AMIODARONE HCL 200 MG TABLET (FP) PO SCH (09:59)
[2018-10-20] MEDS: POLYETHYLENE GLYCOL 3350 119 GM BTL PO SCH (10:05)
[2018-10-20] MEDS: ACETAMINOPHEN 325 MG TABLET (FP) PO SCH ×4 (10:05→21:23)
[2018-10-20] MEDS: LACTOBACILLUS ACIDOPHILUS 1 TABLET PO SCH (10:06)
[2018-10-20] MEDS: LISINOPRIL 5 MG TABLET (FP) PO SCH (10:06)
[2018-10-20] MEDS: FUROSEMIDE 20 MG TABLET (FP) PO SCH (10:06)
[2018-10-20] MEDS: SILVER SULFADIAZINE 1% TOP CREAM 50 GM JAR TP SCH (10:27)
[2018-10-20 15:04] VITALS: BMI 24.8
[2018-10-20] MEDS: RIVAROXABAN 20 MG TABLET PO SCH (17:14)
--- NOTE | 2018-10-20 20:40 | PN ---
Progress Note (short form) - Note Progress Note: patient seen and examined in the room legs elevated / dressing in place dischrge arranged for am - patient to go home with assistance 7days a week Vital Signs Period Temp Pulse Resp BP Sys/Lamonte Pulse Ox Last 24 Hr 97.7 F-97.9 F 55-65 18-20 112-127/55-64 99 neck supple heart S1/S2 lungs clear bilat abd soft non tender ext erythematous /dry skin bilat LE bilat LE with terrence bandage left > right CBC, BMP 10/18/18 06:15 10/18/18 06:15 CBC, BMP 10/15/18 06:00 10/15/18 06:00 Microbiology 10/13/18 13:15 Blood - Peripheral Venous Blood Culture - Final NO GROWTH AFTER 5 DAYS INCUBATION 10/13/18 12:55 Blood - Peripheral Venous Blood Culture - Final NO GROWTH AFTER 5 DAYS INCUBATION Active Medications Acetaminophen (Tylenol -) [address] [facility] Last Admin: 10/18/18 22:32 Dose: 650 mg Albuterol/Ipratropium (Duoneb -) [address] [facility] Last Admin: 10/18/18 21:10 Dose: 1 amp Amiodarone HCl (Cordarone -) [address] [facility] Last Admin: 10/18/18 09:26 Dose: 200 mg Atorvastatin Calcium (Lipitor -) [address] [facility] Last Admin: 10/18/18 22:32 Dose: 10 mg Clindamycin HCl (Cleocin -) [address] [facility] Last Admin: 10/19/18 06:17 Dose: 300 mg Docusate Sodium (Colace -) [address] [facility] Last Admin: 10/18/18 22:31 Dose: 200 mg Furosemide (Lasix -) [address] [facility] Last Admin: 10/18/18 09:10 Dose: 20 mg Glipizide (Glucotrol -) 10 mg PO DAILY@0700 [facility] Last Admin: 10/19/18 06:17 Dose: 10 mg Insulin Aspart (Novolog Vial Sliding Scale -) [address] [facility]; Protocol Last Admin: 10/19/18 06:17 Dose: Not Given Ipratropium [place] (Atrovent 0.02% Nebulizer -) 1 amp NEB Q6H PRN PRN Reason: DYSPEPSIA Stop: 10/20/18 14:45 Lactobacillus Acidophilus (Bacid -) [address] [facility] Last Admin: 10/18/18 13:40 Dose: 1 tab Levothyroxine Sodium (Synthroid -) 50 mcg PO DAILY@0700 [facility] Last Admin: 10/19/18 06:17 Dose: 50 mcg Lisinopril (Prinivil) 2.[address] [facility] Last Admin: 10/18/18 09:11 Dose: 2.5 mg Mometasone Furoate (Asmanex 220mcg -) 2 puff [facility] Last Admin: 10/18/18 22:32 Dose: 2 puff Montelukast Sodium (Singulair -) [address] [facility] Last Admin: 10/18/18 22:31 Dose: 10 mg Oxycodone HCl (Roxicodone -) 5 mg PO Q6H PRN PRN Reason: PAIN LEVEL 6-10 Polyethylene Glycol (Miralax (For Daily Use) -) [address] [facility] Last Admin: 10/18/18 09:11 Dose: 17 gm Rivaroxaban (Xarelto -) 20 mg PO DAILY@1800 [facility] Last Admin: 10/18/18 17:54 Dose: 20 mg Silver Sulfadiazine (Silvadene -) [address] [facility] Last Admin: 10/18/18 09:25 Dose: 1 applic # cellulitis bilat LE local treatment per [facility] wound care as out patient -- VNS Abx per ID # PVD bilt LE s/p ablation of GSV bilaterally over the last couple of weeks. 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 Code(s): I87.333 - CHRONIC VENOUS HTN W ULCER AND INFLAM OF BILATERAL LOW EXTRM ; L97.919 - NON-PRS CHRONIC ULC UNSP PRT OF R LOW LEG W UNSP SEVERITY; L97.929 - NON-PRS CHRONIC ULC UNSP PRT OF L LOW LEG W UNSP SEVERITY (3) CAD (coronary artery disease) of artery bypass graft Code(s): I25.810 - ATHEROSCLEROSIS OF CABG W/O ANGINA PECTORIS (4) Venous (peripheral) insufficiency Code(s): I87.2 - VENOUS INSUFFICIENCY (CHRONIC) (PERIPHERAL) (5) Type 2 diabetes mellitus with other skin ulcer Code(s): E11.622 - TYPE 2 DIABETES MELLITUS WITH OTHER SKIN ULCER; L98.499 - NON -PRESSURE CHRONIC ULCER OF SKIN OF SITES W UNSP SEVERITY
[2018-10-20] MEDS: MONTELUKAST NA 10 MG TABLET PO SCH (21:23)
[2018-10-20] MEDS: ATORVASTATIN CA 10 MG TABLET (FP) PO SCH (21:23)
[2018-10-20] MEDS: DOCUSATE SODIUM 100 MG CAPSULE (FP) PO SCH (21:23)
[2018-10-20] MEDS ORDERED: PT OWN MED DRAWER 7, Y5N ONE (21:28)
[2018-10-20] MEDS: MOMETASONE FUROATE 220 MCG/IH INHALER IH SCH (22:50)
[2018-10-21] MEDS: glipiZIDE 10 MG TABLET (FP) PO SCH (06:52)
[2018-10-21] MEDS: CLINDAMYCIN HCL 150 MG CAPSULE (FP) PO SCH (06:52)
[2018-10-21] MEDS: LEVOTHYROXINE NA 50 MCG TABLET (FP) PO SCH (06:52)
[2018-10-21] MEDS: INSULIN SLIDING SCALE (NOVOLOG) 1 VIAL SQ SCH ×2 (06:52→16:59)
[2018-10-21 07:29] LABS: BASO % 0.4 % (0-2.0); EOS % 1.5 % (0-4.5); HEMATOCRIT 42.7 % (35.4-49); HEMOGLOBIN 13.9 GM/dL (11.7-16.9); LYMPH % 13.2 % (8-40); MCHC 32.6 g/dl (32.0-35.9); MEAN CELL VOLUME 92.1 fl (80-96); MEAN PLT VOLUME 9.1 fl (7.5-11.1); NEUT % 69.9 % (42.8-82.8); PLATELET COUNT 142 K/MM3 (134-434); RBC 4.63 M/mm3 (4.00-5.60); RDW 14.7 % (11.9-15.9); WHITE BLOOD COUNT 5.4 K/mm3 (4.0-10.0)
[2018-10-21] MEDS: ALBUTEROL SO4 2.5/IPRATROPIUM 0.5 INH SOL 3 ML VIAL.NEB. NEB SCH ×4 (07:50→20:24)
[2018-10-21] MEDS ORDERED: glipiZIDE 5 MG TABLET (FP) ONE (08:28)
[2018-10-21] MEDS ORDERED: PT OWN MED DRAWER 7, Y5N ONE ×3 (08:29→21:10)
[2018-10-21 08:39] LABS: ANION GAP 10 MMOL/L (8-16); BLOOD UREA NITROGEN 40 mg/dL (7-18); CALCIUM 8.5 mg/dL (8.5-10.1); CHLORIDE 102 mmol/L (98-107); CO2 24 mmol/L (21-32); CREATININE 1.3 mg/dL (0.55-1.3); GLUCOSE,RANDOM 79 mg/dL (74-106); MAGNESIUM 2.4 mg/dL (1.8-2.4); POTASSIUM 4.3 mmol/L (3.5-5.1); SODIUM 136 mmol/L (136-145)
[2018-10-21] MEDS: ACETAMINOPHEN 325 MG TABLET (FP) PO SCH ×4 (09:36→21:35)
[2018-10-21] MEDS: LACTOBACILLUS ACIDOPHILUS 1 TABLET PO SCH (09:37)
[2018-10-21] MEDS: FUROSEMIDE 20 MG TABLET (FP) PO SCH (09:37)
[2018-10-21] MEDS: POLYETHYLENE GLYCOL 3350 119 GM BTL PO SCH (09:37)
[2018-10-21] MEDS: AMIODARONE HCL 200 MG TABLET (FP) PO SCH (09:38)
[2018-10-21] MEDS: LISINOPRIL 5 MG TABLET (FP) PO SCH (09:39)
[2018-10-21] MEDS: SILVER SULFADIAZINE 1% TOP CREAM 50 GM JAR TP SCH (09:40)
--- NOTE | 2018-10-21 14:26 | PN ---
Progress Note (short form) - Note Progress Note: patient seen and examined in the room legs elevated / dressing in place discharge arranged for tuesday patient to go home with assistance 7days a week Vital Signs Period Temp Pulse Resp BP Sys/Almonte Pulse Ox Last 24 Hr 97.7 F-97.9 F 55-65 18-20 112-127/55-64 99 neck supple heart S1/S2 lungs clear bilat abd soft non tender ext erythematous /dry skin bilat LE bilat LE with terrence bandage left > right CBC, BMP 10/21/18 06:15 10/21/18 06:15 CBC, BMP 10/18/18 06:15 10/18/18 06:15 Microbiology 10/13/18 13:15 Blood - Peripheral Venous Blood Culture - Final NO GROWTH AFTER 5 DAYS INCUBATION 10/13/18 12:55 Blood - Peripheral Venous Blood Culture - Final NO GROWTH AFTER 5 DAYS INCUBATION Active Medications Acetaminophen (Tylenol -) 650 mg PO QID [facility] Last Admin: 10/21/18 13:28 Dose: 650 mg Albuterol/Ipratropium (Duoneb -) 1 amp NEB RQID [facility] Last Admin: 10/21/18 12:02 Dose: 1 amp Amiodarone HCl (Cordarone -) 200 mg PO DAILY [facility] Last Admin: 10/21/18 09:38 Dose: 200 mg Atorvastatin Calcium (Lipitor -) 10 mg PO HS [facility] Last Admin: 10/20/18 21:23 Dose: 10 mg Docusate Sodium (Colace -) 200 mg PO HS [facility] Last Admin: 10/20/18 21:23 Dose: 200 mg Furosemide (Lasix -) 20 mg PO DAILY [facility] Last Admin: 10/21/18 09:37 Dose: 20 mg Glipizide (Glucotrol -) 10 mg PO DAILY@0700 [facility] Last Admin: 10/21/18 06:52 Dose: 10 mg Insulin Aspart (Novolog Vial Sliding Scale -) 1 vial SQ BIDAC [facility]; Protocol Last Admin: 10/21/18 06:52 Dose: Not Given Lactobacillus Acidophilus (Bacid -) 1 tab PO DAILY [facility] Last Admin: 10/21/18 09:37 Dose: 1 tab Levothyroxine Sodium (Synthroid -) 50 mcg PO DAILY@0700 [facility] Last Admin: 10/21/18 06:52 Dose: 50 mcg Lisinopril (Prinivil) 2.5 mg PO DAILY [facility] Last Admin: 10/21/18 09:39 Dose: 2.5 mg Mometasone Furoate (Asmanex 220mcg -) 2 puff [facility] Last Admin: 10/20/18 22:50 Dose: 2 puff Montelukast Sodium (Singulair -) 10 mg PO HS [facility] Last Admin: 10/20/18 21:23 Dose: 10 mg Polyethylene Glycol (Miralax (For Daily Use) -) 17 gm PO DAILY [facility] Last Admin: 10/21/18 09:37 Dose: 17 gm Rivaroxaban (Xarelto -) 20 mg PO DAILY@1800 [facility] Last Admin: 10/20/18 17:14 Dose: 20 mg Silver Sulfadiazine (Silvadene -) 1 applic TP DAILY [facility] Last Admin: 10/21/18 09:40 Dose: 1 applic # cellulitis bilat LE local treatment per [facility] dial[facility] wound care as out patient -- VNS Abx per ID # PVD bilt LE s/p ablation of GSV bilaterally over the last couple of weeks. 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 Code(s): I87.333 - CHRONIC VENOUS HTN W ULCER AND INFLAM OF BILATERAL LOW EXTRM ; L97.919 - NON-PRS CHRONIC ULC UNSP PRT OF R LOW LEG W UNSP SEVERITY; L97.929 - NON-PRS CHRONIC ULC UNSP PRT OF L LOW LEG W UNSP SEVERITY (3) CAD (coronary artery disease) of artery bypass graft Code(s): I25.810 - ATHEROSCLEROSIS OF CABG W/O ANGINA PECTORIS (4) Venous (peripheral) insufficiency Code(s): I87.2 - VENOUS INSUFFICIENCY (CHRONIC) (PERIPHERAL) (5) Type 2 diabetes mellitus with other skin ulcer Code(s): E11.622 - TYPE 2 DIABETES MELLITUS WITH OTHER SKIN ULCER; L98.499 - NON -PRESSURE CHRONIC ULCER OF SKIN OF SITES W UNSP SEVERITY
[2018-10-21] MEDS: RIVAROXABAN 20 MG TABLET PO SCH (17:49)
[2018-10-21] MEDS: MOMETASONE FUROATE 220 MCG/IH INHALER IH SCH (21:34)
[2018-10-21] MEDS: ATORVASTATIN CA 10 MG TABLET (FP) PO SCH (21:35)
[2018-10-21] MEDS: MONTELUKAST NA 10 MG TABLET PO SCH (21:35)
[2018-10-21] MEDS: DOCUSATE SODIUM 100 MG CAPSULE (FP) PO SCH (21:35)
[2018-10-22] MEDS: LEVOTHYROXINE NA 50 MCG TABLET (FP) PO SCH (07:01)
[2018-10-22] MEDS: glipiZIDE 10 MG TABLET (FP) PO SCH (07:01)
[2018-10-22] MEDS: INSULIN SLIDING SCALE (NOVOLOG) 1 VIAL SQ SCH ×2 (07:01→16:52)
[2018-10-22] MEDS: ALBUTEROL SO4 2.5/IPRATROPIUM 0.5 INH SOL 3 ML VIAL.NEB. NEB SCH ×4 (08:15→19:20)
[2018-10-22] MEDS ORDERED: PT OWN MED DRAWER 7, Y5N ONE ×3 (08:16→20:23)
[2018-10-22] MEDS: LACTOBACILLUS ACIDOPHILUS 1 TABLET PO SCH (09:14)
[2018-10-22] MEDS: FUROSEMIDE 20 MG TABLET (FP) PO SCH (09:14)
[2018-10-22] MEDS: LISINOPRIL 5 MG TABLET (FP) PO SCH (09:15)
[2018-10-22] MEDS: ACETAMINOPHEN 325 MG TABLET (FP) PO SCH ×4 (09:16→21:45)
[2018-10-22] MEDS: POLYETHYLENE GLYCOL 3350 119 GM BTL PO SCH (09:17)
[2018-10-22] MEDS: AMIODARONE HCL 200 MG TABLET (FP) PO SCH (09:17)
[2018-10-22] MEDS: SILVER SULFADIAZINE 1% TOP CREAM 50 GM JAR TP SCH (09:17)
[2018-10-22] MEDS: RIVAROXABAN 20 MG TABLET PO SCH (17:02)
[2018-10-22] MEDS: MONTELUKAST NA 10 MG TABLET PO SCH (21:45)
[2018-10-22] MEDS: MOMETASONE FUROATE 220 MCG/IH INHALER IH SCH (21:45)
[2018-10-22] MEDS: ATORVASTATIN CA 10 MG TABLET (FP) PO SCH (21:45)
[2018-10-22] MEDS: DOCUSATE SODIUM 100 MG CAPSULE (FP) PO SCH (21:45)
[2018-10-23] MEDS: LEVOTHYROXINE NA 50 MCG TABLET (FP) PO SCH (06:42)
[2018-10-23] MEDS: INSULIN SLIDING SCALE (NOVOLOG) 1 VIAL SQ SCH ×2 (06:42→17:54)
[2018-10-23] MEDS: glipiZIDE 10 MG TABLET (FP) PO SCH (06:42)
[2018-10-23] MEDS: ALBUTEROL SO4 2.5/IPRATROPIUM 0.5 INH SOL 3 ML VIAL.NEB. NEB SCH ×4 (07:10→20:04)
[2018-10-23] MEDS ORDERED: PT OWN MED DRAWER 7, Y5N ONE ×2 (09:09→20:58)
[2018-10-23] MEDS: ACETAMINOPHEN 325 MG TABLET (FP) PO SCH ×4 (09:11→22:09)
[2018-10-23] MEDS: LISINOPRIL 5 MG TABLET (FP) PO SCH (09:11)
[2018-10-23] MEDS: LACTOBACILLUS ACIDOPHILUS 1 TABLET PO SCH (09:11)
[2018-10-23] MEDS: FUROSEMIDE 20 MG TABLET (FP) PO SCH (09:11)
[2018-10-23] MEDS: AMIODARONE HCL 200 MG TABLET (FP) PO SCH (09:12)
[2018-10-23] MEDS: SILVER SULFADIAZINE 1% TOP CREAM 50 GM JAR TP SCH (09:12)
[2018-10-23] MEDS: POLYETHYLENE GLYCOL 3350 119 GM BTL PO SCH (15:52)
[2018-10-23] MEDS: RIVAROXABAN 20 MG TABLET PO SCH (17:55)
--- NOTE | 2018-10-23 18:31 | PN ---
Progress Note (short form) - Note Progress Note: patient seen and examined in the room legs elevated / dressing in place discharge arranged for tuesday patient to go home with assistance 7days a week Vital Signs Period Temp Pulse Resp BP Sys/Almonte Pulse Ox Last 24 Hr 97.7 F-97.9 F 55-65 18-20 112-127/55-64 99 neck supple heart S1/S2 lungs clear bilat abd soft non tender ext erythematous /dry skin bilat LE bilat LE with terrence bandage left > right CBC, BMP 10/21/18 06:15 10/21/18 06:15 CBC, BMP 10/18/18 06:15 10/18/18 06:15 Microbiology 10/13/18 13:15 Blood - Peripheral Venous Blood Culture - Final NO GROWTH AFTER 5 DAYS INCUBATION 10/13/18 12:55 Blood - Peripheral Venous Blood Culture - Final NO GROWTH AFTER 5 DAYS INCUBATION Active Medications Acetaminophen (Tylenol -) 650 mg PO QID [facility] Last Admin: 10/21/18 13:28 Dose: 650 mg Albuterol/Ipratropium (Duoneb -) 1 amp NEB RQID [facility] Last Admin: 10/21/18 12:02 Dose: 1 amp Amiodarone HCl (Cordarone -) 200 mg PO DAILY [facility] Last Admin: 10/21/18 09:38 Dose: 200 mg Atorvastatin Calcium (Lipitor -) 10 mg PO HS [facility] Last Admin: 10/20/18 21:23 Dose: 10 mg Docusate Sodium (Colace -) 200 mg PO HS [facility] Last Admin: 10/20/18 21:23 Dose: 200 mg Furosemide (Lasix -) 20 mg PO DAILY [facility] Last Admin: 10/21/18 09:37 Dose: 20 mg Glipizide (Glucotrol -) 10 mg PO DAILY@0700 [facility] Last Admin: 10/21/18 06:52 Dose: 10 mg Insulin Aspart (Novolog Vial Sliding Scale -) 1 vial SQ BIDAC [facility]; Protocol Last Admin: 10/21/18 06:52 Dose: Not Given Lactobacillus Acidophilus (Bacid -) 1 tab PO DAILY [facility] Last Admin: 10/21/18 09:37 Dose: 1 tab Levothyroxine Sodium (Synthroid -) 50 mcg PO DAILY@0700 [facility] Last Admin: 10/21/18 06:52 Dose: 50 mcg Lisinopril (Prinivil) 2.5 mg PO DAILY [facility] Last Admin: 10/21/18 09:39 Dose: 2.5 mg Mometasone Furoate (Asmanex 220mcg -) 2 puff [facility] Last Admin: 10/20/18 22:50 Dose: 2 puff Montelukast Sodium (Singulair -) 10 mg PO HS [facility] Last Admin: 10/20/18 21:23 Dose: 10 mg Polyethylene Glycol (Miralax (For Daily Use) -) 17 gm PO DAILY [facility] Last Admin: 10/21/18 09:37 Dose: 17 gm Rivaroxaban (Xarelto -) 20 mg PO DAILY@1800 [facility] Last Admin: 10/20/18 17:14 Dose: 20 mg Silver Sulfadiazine (Silvadene -) 1 applic TP DAILY [facility] Last Admin: 10/21/18 09:40 Dose: 1 applic # cellulitis bilat LE local treatment per [facility] dial[facility] wound care as out patient -- VNS Abx per ID # PVD bilt LE s/p ablation of GSV bilaterally over the last couple of weeks. 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 Code(s): I87.333 - CHRONIC VENOUS HTN W ULCER AND INFLAM OF BILATERAL LOW EXTRM ; L97.919 - NON-PRS CHRONIC ULC UNSP PRT OF R LOW LEG W UNSP SEVERITY; L97.929 - NON-PRS CHRONIC ULC UNSP PRT OF L LOW LEG W UNSP SEVERITY (3) CAD (coronary artery disease) of artery bypass graft Code(s): I25.810 - ATHEROSCLEROSIS OF CABG W/O ANGINA PECTORIS (4) Venous (peripheral) insufficiency Code(s): I87.2 - VENOUS INSUFFICIENCY (CHRONIC) (PERIPHERAL) (5) Type 2 diabetes mellitus with other skin ulcer Code(s): E11.622 - TYPE 2 DIABETES MELLITUS WITH OTHER SKIN ULCER; L98.499 - NON -PRESSURE CHRONIC ULCER OF SKIN OF SITES W UNSP SEVERITY
--- NOTE | 2018-10-23 18:33 | PN ---
Progress Note (short form) - Note Progress Note: patient seen and examined in the room legs elevated / dressing in place discharge arranged for today patient to go home with assistance 7days a week has remained afebrile Vital Signs Period Temp Pulse Resp BP Sys/Almonte Pulse Ox Last 24 Hr 97.7 F-97.9 F 55-65 18-20 112-127/55-64 99 neck supple heart S1/S2 lungs clear bilat abd soft non tender ext erythematous /dry skin bilat LE bilat LE with terrence bandage left > right Microbiology 10/13/18 13:15 Blood - Peripheral Venous Blood Culture - Final NO GROWTH AFTER 5 DAYS INCUBATION 10/13/18 12:55 Blood - Peripheral Venous Blood Culture - Final NO GROWTH AFTER 5 DAYS INCUBATION Active Medications Acetaminophen (Tylenol -) 650 mg PO QID [facility] Last Admin: 10/21/18 13:28 Dose: 650 mg Albuterol/Ipratropium (Duoneb -) 1 amp NEB RQID [facility] Last Admin: 10/21/18 12:02 Dose: 1 amp Amiodarone HCl (Cordarone -) 200 mg PO DAILY [facility] Last Admin: 10/21/18 09:38 Dose: 200 mg Atorvastatin Calcium (Lipitor -) 10 mg PO HS [facility] Last Admin: 10/20/18 21:23 Dose: 10 mg Docusate Sodium (Colace -) 200 mg PO HS [facility] Last Admin: 10/20/18 21:23 Dose: 200 mg Furosemide (Lasix -) 20 mg PO DAILY [facility] Last Admin: 10/21/18 09:37 Dose: 20 mg Glipizide (Glucotrol -) 10 mg PO DAILY@0700 [facility] Last Admin: 10/21/18 06:52 Dose: 10 mg Insulin Aspart (Novolog Vial Sliding Scale -) 1 vial SQ BIDAC [facility]; Protocol Last Admin: 10/21/18 06:52 Dose: Not Given Lactobacillus Acidophilus (Bacid -) 1 tab PO DAILY [facility] Last Admin: 10/21/18 09:37 Dose: 1 tab Levothyroxine Sodium (Synthroid -) 50 mcg PO DAILY@0700 [facility] Last Admin: 10/21/18 06:52 Dose: 50 mcg Lisinopril (Prinivil) 2.5 mg PO DAILY [facility] Last Admin: 10/21/18 09:39 Dose: 2.5 mg Mometasone Furoate (Asmanex 220mcg -) 2 puff IH [facility] Last Admin: 10/20/18 22:50 Dose: 2 puff Montelukast Sodium (Singulair -) 10 mg PO HS [facility] Last Admin: 10/20/18 21:23 Dose: 10 mg Polyethylene Glycol (Miralax (For Daily Use) -) 17 gm PO DAILY [facility] Last Admin: 10/21/18 09:37 Dose: 17 gm Rivaroxaban (Xarelto -) 20 mg PO DAILY@1800 [facility] Last Admin: 10/20/18 17:14 Dose: 20 mg Silver Sulfadiazine (Silvadene -) 1 applic TP DAILY [facility] Last Admin: 10/21/18 09:40 Dose: 1 applic # cellulitis bilat LE local treatment per [facility] dialy wound care as out patient -- VNS Abx per ID # PVD bilt LE s/p ablation of GSV bilaterally over the last couple of weeks. 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 Code(s): I87.333 - CHRONIC VENOUS HTN W ULCER AND INFLAM OF BILATERAL LOW EXTRM ; L97.919 - NON-PRS CHRONIC ULC UNSP PRT OF R LOW LEG W UNSP SEVERITY; L97.929 - NON-PRS CHRONIC ULC UNSP PRT OF L LOW LEG W UNSP SEVERITY (3) CAD (coronary artery disease) of artery bypass graft Code(s): I25.810 - ATHEROSCLEROSIS OF CABG W/O ANGINA PECTORIS (4) Venous (peripheral) insufficiency Code(s): I87.2 - VENOUS INSUFFICIENCY (CHRONIC) (PERIPHERAL) (5) Type 2 diabetes mellitus with other skin ulcer Code(s): E11.622 - TYPE 2 DIABETES MELLITUS WITH OTHER SKIN ULCER; L98.499 - NON -PRESSURE CHRONIC ULCER OF SKIN OF SITES W UNSP SEVERITY
[2018-10-23] MEDS: ATORVASTATIN CA 10 MG TABLET (FP) PO SCH (22:10)
[2018-10-23] MEDS: DOCUSATE SODIUM 100 MG CAPSULE (FP) PO SCH (22:10)
[2018-10-23] MEDS: MONTELUKAST NA 10 MG TABLET PO SCH (22:11)
[2018-10-23] MEDS: MOMETASONE FUROATE 220 MCG/IH INHALER IH SCH (23:46)
[2018-10-24] MEDS ORDERED: glipiZIDE 5 MG TABLET (FP) ONE (05:36)
[2018-10-24] MEDS: LEVOTHYROXINE NA 50 MCG TABLET (FP) PO SCH (06:08)
[2018-10-24] MEDS: INSULIN SLIDING SCALE (NOVOLOG) 1 VIAL SQ SCH ×2 (06:08→18:37)
[2018-10-24] MEDS: glipiZIDE 10 MG TABLET (FP) PO SCH (06:09)
[2018-10-24] MEDS: ALBUTEROL SO4 2.5/IPRATROPIUM 0.5 INH SOL 3 ML VIAL.NEB. NEB SCH ×4 (07:37→21:00)
[2018-10-24] MEDS: LACTOBACILLUS ACIDOPHILUS 1 TABLET PO SCH (10:09)
[2018-10-24] MEDS: ACETAMINOPHEN 325 MG TABLET (FP) PO SCH ×4 (10:09→21:50)
[2018-10-24] MEDS: LISINOPRIL 5 MG TABLET (FP) PO SCH (10:09)
[2018-10-24] MEDS: FUROSEMIDE 20 MG TABLET (FP) PO SCH (10:09)
[2018-10-24] MEDS: SILVER SULFADIAZINE 1% TOP CREAM 50 GM JAR TP SCH (10:11)
[2018-10-24] MEDS: POLYETHYLENE GLYCOL 3350 119 GM BTL PO SCH (10:11)
[2018-10-24] MEDS ORDERED: PT OWN MED DRAWER 7, Y5N ONE (10:12)
[2018-10-24] MEDS: AMIODARONE HCL 200 MG TABLET (FP) PO SCH (10:13)
[2018-10-24] MEDS: RIVAROXABAN 20 MG TABLET PO SCH (17:16)
--- NOTE | 2018-10-24 21:00 | PN ---
Progress Note (short form) - Note Progress Note: patient seen and examined in the room legs elevated / dressing in place discharge arranged for today delayed due to insurance Vital Signs Period Temp Pulse Resp BP Sys/Almonte Pulse Ox Last 24 Hr 97.7 F-97.9 F 55-65 18-20 112-127/55-64 99 neck supple heart S1/S2 lungs clear bilat abd soft non tender ext erythematous /dry skin bilat LE bilat LE with terrence bandage left > right Microbiology 10/13/18 13:15 Blood - Peripheral Venous Blood Culture - Final NO GROWTH AFTER 5 DAYS INCUBATION 10/13/18 12:55 Blood - Peripheral Venous Blood Culture - Final NO GROWTH AFTER 5 DAYS INCUBATION Active Medications Acetaminophen (Tylenol -) 650 mg PO QID [facility] Last Admin: 10/21/18 13:28 Dose: 650 mg Albuterol/Ipratropium (Duoneb -) 1 amp NEB RQID [facility] Last Admin: 10/21/18 12:02 Dose: 1 amp Amiodarone HCl (Cordarone -) 200 mg PO DAILY [facility] Last Admin: 10/21/18 09:38 Dose: 200 mg Atorvastatin Calcium (Lipitor -) 10 mg PO [facility] Last Admin: 10/20/18 21:23 Dose: 10 mg Docusate Sodium (Colace -) 200 mg PO [facility] Last Admin: 10/20/18 21:23 Dose: 200 mg Furosemide (Lasix -) 20 mg PO DAILY [facility] Last Admin: 10/21/18 09:37 Dose: 20 mg Glipizide (Glucotrol -) 10 mg PO DAILY@0700 [facility] Last Admin: 10/21/18 06:52 Dose: 10 mg Insulin Aspart (Novolog Vial Sliding Scale -) 1 vial SQ BIDAC [facility]; Protocol Last Admin: 10/21/18 06:52 Dose: Not Given Lactobacillus Acidophilus (Bacid -) 1 tab PO DAILY [facility] Last Admin: 10/21/18 09:37 Dose: 1 tab Levothyroxine Sodium (Synthroid -) 50 mcg PO DAILY@0700 [facility] Last Admin: 10/21/18 06:52 Dose: 50 mcg Lisinopril (Prinivil) 2.5 mg PO DAILY [facility] Last Admin: 10/21/18 09:39 Dose: 2.5 mg Mometasone Furoate (Asmanex 220mcg -) 2 puff IH [facility] Last Admin: 10/20/18 22:50 Dose: 2 puff Montelukast Sodium (Singulair -) 10 mg PO HS [facility] Last Admin: 10/20/18 21:23 Dose: 10 mg Polyethylene Glycol (Miralax (For Daily Use) -) 17 gm PO DAILY [facility] Last Admin: 10/21/18 09:37 Dose: 17 gm Rivaroxaban (Xarelto -) 20 mg PO DAILY@1800 [facility] Last Admin: 10/20/18 17:14 Dose: 20 mg Silver Sulfadiazine (Silvadene -) 1 applic TP DAILY [facility] Last Admin: 10/21/18 09:40 Dose: 1 applic # cellulitis bilat LE local treatment per [facility] dialy wound care as out patient -- VNS Abx per ID # PVD bilt LE s/p ablation of GSV bilaterally over the last couple of weeks. 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 Code(s): I87.333 - CHRONIC VENOUS HTN W ULCER AND INFLAM OF BILATERAL LOW EXTRM ; L97.919 - NON-PRS CHRONIC ULC UNSP PRT OF R LOW LEG W UNSP SEVERITY; L97.929 - NON-PRS CHRONIC ULC UNSP PRT OF L LOW LEG W UNSP SEVERITY (3) CAD (coronary artery disease) of artery bypass graft Code(s): I25.810 - ATHEROSCLEROSIS OF CABG W/O ANGINA PECTORIS (4) Venous (peripheral) insufficiency Code(s): I87.2 - VENOUS INSUFFICIENCY (CHRONIC) (PERIPHERAL) (5) Type 2 diabetes mellitus with other skin ulcer Code(s): E11.622 - TYPE 2 DIABETES MELLITUS WITH OTHER SKIN ULCER; L98.499 - NON -PRESSURE CHRONIC ULCER OF SKIN OF SITES W UNSP SEVERITY
[2018-10-24] MEDS: ATORVASTATIN CA 10 MG TABLET (FP) PO SCH (21:50)
[2018-10-24] MEDS: MONTELUKAST NA 10 MG TABLET PO SCH (21:50)
[2018-10-24] MEDS: DOCUSATE SODIUM 100 MG CAPSULE (FP) PO SCH (21:50)
[2018-10-24] MEDS: MOMETASONE FUROATE 220 MCG/IH INHALER IH SCH (21:50)
[2018-10-25] MEDS ORDERED: PT OWN MED DRAWER 7, Y5N ONE ×4 (02:04→20:54)
[2018-10-25] MEDS: glipiZIDE 10 MG TABLET (FP) PO SCH (06:22)
[2018-10-25] MEDS: LEVOTHYROXINE NA 50 MCG TABLET (FP) PO SCH (06:22)
[2018-10-25] MEDS: INSULIN SLIDING SCALE (NOVOLOG) 1 VIAL SQ SCH ×2 (06:24→16:50)
[2018-10-25] MEDS: ALBUTEROL SO4 2.5/IPRATROPIUM 0.5 INH SOL 3 ML VIAL.NEB. NEB SCH ×4 (07:55→20:05)
[2018-10-25] MEDS: FUROSEMIDE 20 MG TABLET (FP) PO SCH (09:15)
[2018-10-25] MEDS: LACTOBACILLUS ACIDOPHILUS 1 TABLET PO SCH (09:15)
[2018-10-25] MEDS: LISINOPRIL 5 MG TABLET (FP) PO SCH (09:15)
[2018-10-25] MEDS: ACETAMINOPHEN 325 MG TABLET (FP) PO SCH ×4 (09:16→21:27)
[2018-10-25] MEDS: AMIODARONE HCL 200 MG TABLET (FP) PO SCH (09:17)
[2018-10-25] MEDS: POLYETHYLENE GLYCOL 3350 119 GM BTL PO SCH (09:17)
[2018-10-25] MEDS: SILVER SULFADIAZINE 1% TOP CREAM 50 GM JAR TP SCH (09:17)
--- NOTE | 2018-10-25 12:28 | PN ---
Progress Note (short form) - Note Progress Note: patient seen and examined in the room legs elevated / dressing in place discharge delayed due to insurance Vital Signs Period Temp Pulse Resp BP Sys/Almonte Pulse Ox Last 24 Hr 97.3 F-98.1 F 53-64 5-20 106-142/54-75 95-96 neck supple heart S1/S2 lungs clear bilat abd soft non tender ext erythematous /dry skin bilat LE bilat LE with terrence bandage left > right Microbiology 10/13/18 13:15 Blood - Peripheral Venous Blood Culture - Final NO GROWTH AFTER 5 DAYS INCUBATION 10/13/18 12:55 Blood - Peripheral Venous Blood Culture - Final NO GROWTH AFTER 5 DAYS INCUBATION Active Medications Acetaminophen (Tylenol -) 650 mg PO QID [facility] Last Admin: 10/25/18 09:16 Dose: Not Given Albuterol/Ipratropium (Duoneb -) 1 amp NEB RQID [facility] Last Admin: 10/25/18 12:07 Dose: 1 amp Amiodarone HCl (Cordarone -) 200 mg PO DAILY [facility] Last Admin: 10/25/18 09:17 Dose: 200 mg Atorvastatin Calcium (Lipitor -) 10 mg PO [facility] Last Admin: 10/24/18 21:50 Dose: 10 mg Docusate Sodium (Colace -) 200 mg PO [facility] Last Admin: 10/24/18 21:50 Dose: 200 mg Furosemide (Lasix -) 20 mg PO DAILY [facility] Last Admin: 10/25/18 09:15 Dose: 20 mg Glipizide (Glucotrol -) 10 mg PO DAILY@0700 [facility] Last Admin: 10/25/18 06:22 Dose: 10 mg Insulin Aspart (Novolog Vial Sliding Scale -) 1 vial SQ BIDAC [facility]; Protocol Last Admin: 10/25/18 06:24 Dose: Not Given Lactobacillus Acidophilus (Bacid -) 1 tab PO DAILY [facility] Last Admin: 10/25/18 09:15 Dose: 1 tab Levothyroxine Sodium (Synthroid -) 50 mcg PO DAILY@0700 [facility] Last Admin: 10/25/18 06:22 Dose: 50 mcg Lisinopril (Prinivil) 2.5 mg PO DAILY [facility] Last Admin: 10/25/18 09:15 Dose: 2.5 mg Mometasone Furoate (Asmanex 220mcg -) 2 puff IH [facility] Last Admin: 10/24/18 21:50 Dose: 2 puff Montelukast Sodium (Singulair -) 10 mg PO HS [facility] Last Admin: 10/24/18 21:50 Dose: 10 mg Polyethylene Glycol (Miralax (For Daily Use) -) 17 gm PO DAILY [facility] Last Admin: 10/25/18 09:17 Dose: 17 gm Rivaroxaban (Xarelto -) 20 mg PO DAILY@1800 [facility] Last Admin: 10/24/18 17:16 Dose: 20 mg Silver Sulfadiazine (Silvadene -) 1 applic TP DAILY [facility] Last Admin: 10/25/18 09:17 Dose: 1 applic # cellulitis bilat LE local treatment per [facility] dial[facility] wound care as out patient -- VNS Abx per ID # PVD bilt LE s/p ablation of GSV bilaterally over the last couple of weeks. 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 Code(s): I87.333 - CHRONIC VENOUS HTN W ULCER AND INFLAM OF BILATERAL LOW EXTRM ; L97.919 - NON-PRS CHRONIC ULC UNSP PRT OF R LOW LEG W UNSP SEVERITY; L97.929 - NON-PRS CHRONIC ULC UNSP PRT OF L LOW LEG W UNSP SEVERITY (3) CAD (coronary artery disease) of artery bypass graft Code(s): I25.810 - ATHEROSCLEROSIS OF CABG W/O ANGINA PECTORIS (4) Venous (peripheral) insufficiency Code(s): I87.2 - VENOUS INSUFFICIENCY (CHRONIC) (PERIPHERAL) (5) Type 2 diabetes mellitus with other skin ulcer Code(s): E11.622 - TYPE 2 DIABETES MELLITUS WITH OTHER SKIN ULCER; L98.499 - NON -PRESSURE CHRONIC ULCER OF SKIN OF SITES W UNSP SEVERITY
[2018-10-25] MEDS: RIVAROXABAN 20 MG TABLET PO SCH (18:32)
[2018-10-25] MEDS: MOMETASONE FUROATE 220 MCG/IH INHALER IH SCH (21:27)
[2018-10-25] MEDS: MONTELUKAST NA 10 MG TABLET PO SCH (21:28)
[2018-10-25] MEDS: DOCUSATE SODIUM 100 MG CAPSULE (FP) PO SCH (21:28)
[2018-10-25] MEDS: ATORVASTATIN CA 10 MG TABLET (FP) PO SCH (21:29)
[2018-10-26] MEDS ORDERED: glipiZIDE 5 MG TABLET (FP) ONE (06:11)
[2018-10-26] MEDS: glipiZIDE 10 MG TABLET (FP) PO SCH (06:32)
[2018-10-26] MEDS: INSULIN SLIDING SCALE (NOVOLOG) 1 VIAL SQ SCH (06:32)
[2018-10-26] MEDS: LEVOTHYROXINE NA 50 MCG TABLET (FP) PO SCH (06:33)
[2018-10-26] MEDS: ALBUTEROL SO4 2.5/IPRATROPIUM 0.5 INH SOL 3 ML VIAL.NEB. NEB SCH ×3 (07:55→15:35)
[2018-10-26] MEDS: AMIODARONE HCL 200 MG TABLET (FP) PO SCH (10:56)
[2018-10-26] MEDS: FUROSEMIDE 20 MG TABLET (FP) PO SCH (10:56)
[2018-10-26] MEDS: POLYETHYLENE GLYCOL 3350 119 GM BTL PO SCH (10:56)
[2018-10-26] MEDS: LISINOPRIL 5 MG TABLET (FP) PO SCH (10:56)
[2018-10-26] MEDS: LACTOBACILLUS ACIDOPHILUS 1 TABLET PO SCH (10:56)
[2018-10-26] MEDS: SILVER SULFADIAZINE 1% TOP CREAM 50 GM JAR TP SCH (10:57)
[2018-10-26] MEDS: ACETAMINOPHEN 325 MG TABLET (FP) PO SCH (10:57)
--- NOTE | 2018-10-26 12:01 | PN ---
Progress Note (short form) - Note Progress Note: 83 y/o male found lying in bed. Denies pain and discomfort. Vital Signs Period Temp Pulse Resp BP Sys/[place] Pulse Ox Last 24 Hr 97.5 F-97.9 F 54-71 18-18 109-120/51-60 95 CBC, BMP 10/21/18 06:15 10/21/18 06:15 HEENT-Normocephalic Neck-Supple Lungs-CTAB Heart-S1/S2 Abd-Soft,nt Ext-No LE edema Active Medications Acetaminophen (Tylenol -) 650 mg PO QID [facility] Last Admin: 10/26/18 10:57 Dose: Not Given Albuterol/Ipratropium (Duoneb -) 1 amp NEB RQID [facility] Last Admin: 10/26/18 07:55 Dose: Not Given Amiodarone HCl (Cordarone -) 200 mg PO DAILY [facility] Last Admin: 10/26/18 10:56 Dose: 200 mg Atorvastatin Calcium (Lipitor -) 10 mg PO [facility] Last Admin: 10/25/18 21:29 Dose: 10 mg Docusate Sodium (Colace -) 200 mg PO HS [facility] Last Admin: 10/25/18 21:28 Dose: 200 mg Furosemide (Lasix -) 20 mg PO DAILY [facility] Last Admin: 10/26/18 10:56 Dose: 20 mg Glipizide (Glucotrol -) 10 mg PO DAILY@0700 [facility] Last Admin: 10/26/18 06:32 Dose: 10 mg Insulin Aspart (Novolog Vial Sliding Scale -) 1 vial SQ BIDAC [facility]; Protocol Last Admin: 10/26/18 06:32 Dose: Not Given Lactobacillus Acidophilus (Bacid -) 1 tab PO DAILY [facility] Last Admin: 10/26/18 10:56 Dose: 1 tab Levothyroxine Sodium (Synthroid -) 50 mcg PO DAILY@0700 [facility] Last Admin: 10/26/18 06:33 Dose: 50 mcg Lisinopril (Prinivil) 2.5 mg PO DAILY [facility] Last Admin: 10/26/18 10:56 Dose: 2.5 mg Mometasone Furoate (Asmanex 220mcg -) 2 puff [facility] Last Admin: 10/25/18 21:27 Dose: 2 puff Montelukast Sodium (Singulair -) 10 mg PO [facility] Last Admin: 10/25/18 21:28 Dose: 10 mg Polyethylene Glycol (Miralax (For Daily Use) -) 17 gm PO DAILY [facility] Last Admin: 10/26/18 10:56 Dose: 17 gm Rivaroxaban (Xarelto -) 20 mg PO DAILY@1800 [facility] Last Admin: 10/25/18 18:32 Dose: 20 mg Silver Sulfadiazine (Silvadene -) 1 applic TP DAILY [facility] Last Admin: 10/26/18 10:57 Dose: 1 applic # cellulitis local treatment per [facility] care as out patient -- VNS # PVD pilo LE s/p ablation of GSV bilaterally #DM BG stable # hypothyroid continue synthroid #CAD s/p Cabg patient able to ambulate >200 ft awaiting d/c home when services in place Problem List - Problems (1) Cellulitis of right lower extremity Code(s): L03.115 - CELLULITIS OF RIGHT LOWER LIMB (2) 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 Code(s): I87.333 - CHRONIC VENOUS HTN W ULCER AND INFLAM OF BILATERAL LOW EXTRM ; L97.919 - NON-PRS CHRONIC ULC UNSP PRT OF R LOW LEG W UNSP SEVERITY; L97.929 - NON-PRS CHRONIC ULC UNSP PRT OF L LOW LEG W UNSP SEVERITY (3) CAD (coronary artery disease) of artery bypass graft Code(s): I25.810 - ATHEROSCLEROSIS OF CABG W/O ANGINA PECTORIS (4) Venous (peripheral) insufficiency Code(s): I87.2 - VENOUS INSUFFICIENCY (CHRONIC) (PERIPHERAL) (5) Type 2 diabetes mellitus with other skin ulcer Code(s): E11.622 - TYPE 2 DIABETES MELLITUS WITH OTHER SKIN ULCER; L98.499 - NON -PRESSURE CHRONIC ULCER OF SKIN OF SITES W UNSP SEVERITY
[2018-10-26 13:52] VITALS: BP 118/59; PULSE 59; TEMP 97.3
== END 2018-10-26 17:08 | DRG 603 ==
LOC: JER 10:36 → JERBED 13:20 → J5S 15:00 → J7W 10-18 01:07
PROVIDERS: ADMIT Family Medicine; ATTEND Family Medicine
DX: L03.115 Cellulitis of right lower limb (principal); L97.918 Non-pressure chronic ulcer of unspecified part of right lower leg with other specified severity; I87.333 Chronic venous hypertension (idiopathic) with ulcer and inflammation of bilateral lower extremity; L97.929 Non-pressure chronic ulcer of unspecified part of left lower leg with unspecified severity; E78.00 Pure hypercholesterolemia, unspecified; I25.10 Atherosclerotic heart disease of native coronary artery without angina pectoris; E03.9 Hypothyroidism, unspecified; E11.622 Type 2 diabetes mellitus with other skin ulcer; R26.81 Unsteadiness on feet; I49.9 Cardiac arrhythmia, unspecified; J44.9 Chronic obstructive pulmonary disease, unspecified; I12.9 Hypertensive chronic kidney disease with stage 1 through stage 4 chronic kidney disease, or unspecified chronic kidney disease; E11.22 Type 2 diabetes mellitus with diabetic chronic kidney disease; N18.9 Chronic kidney disease, unspecified; L03.116 Cellulitis of left lower limb; Z95.1 Presence of aortocoronary bypass graft; E11.51 Type 2 diabetes mellitus with diabetic peripheral angiopathy without gangrene; Z87.891 Personal history of nicotine dependence
CPT/HCPCS: 36415; 71045-TC-FY; 80048; 80053; 81003; 82962; 83735; 85025; 87040; 93005; 93010; 94640; 97116-GP; 97161-GP; 99283-25; G0463-25